=== PATIENT | female | born 1975 | race Caucasian/White ===

== ENCOUNTER → 2018-03-05 | Outpatient (CLI) | payer BC ==
[~2018-03-05] MED LIST: FERUMOXYTOL 510 MG in SODIUM CHLORIDE 0.9% 50 ML IVPB ONE; SODIUM CHLORIDE 0.9% 500 ML 500 ML in EMPTY BAG 1 BAG IV PRN
[2018-03-05 11:37] VITALS: BP 137/88; PULSE 74; RESP 18; TEMP 97.7
== END ==
LOC: PEDOP 10:55
PROVIDERS: ATTEND Physician Assistant
DX: D50.9 Iron deficiency anemia, unspecified (principal)
CPT/HCPCS: 96365; Q0138

== ENCOUNTER → 2018-03-10 | Outpatient (CLI) | payer BC ==
[2018-03-10 08:19] VITALS: BP 140/75; PULSE 82; RESP 16; TEMP 98
== END | disposition home or self-care (01) ==
LOC: PROCWHC3 08:00
PROVIDERS: ATTEND Physician Assistant
DX: D50.9 Iron deficiency anemia, unspecified (principal)
CPT/HCPCS: 96365; Q0138

== ENCOUNTER 2021-03-29 07:12 | Observation (INO) | payer BC ==
[2021-03-29] MEDS ORDERED: SODIUM CHLORIDE 0.9% 500 ML 500 ML IV STA (08:07)
--- NOTE | 2021-03-29 08:25 | ED ---
General Adult HPI - General Chief complaint: Recheck/Abnormal Lab/Rx Stated complaint: High Blood Pressure Time Seen by Provider: 03/29/21 07:47 Source: patient, RN notes reviewed, old records reviewed Mode of arrival: ambulatory Limitations: no limitations - History of Present Illness Initial comments: 45-year-old female presenting for evaluation of elevated blood pressure. Patient has history of hypertension. She was seen for a preoperative clearance for hip replacement and noted to have an elevated blood pressure. She was started on losartan HTC Z yesterday. She is additionally taking metoprolol. She has been taking this for many years. She has a very mild headache. No central chest pain. No abdominal pain nausea vomiting she has been eating and drinking well. No fevers. - Related Data Home Medications Medication Instructions Recorded Confirmed Aspirin EC [Ecotrin Low Dose] 81 mg PO HS 02/19/18 03/10/18 Losartan/Hydrochlorothiazide 1 tab PO DAILY 02/19/18 03/10/18 [Losartan-Hctz 100-25 mg Tab] Metoprolol Succinate [Toprol Xl] 50 mg PO DAILY 02/19/18 03/10/18 Sertraline [Zoloft] 50 mg PO DAILY 02/19/18 03/10/18 Simvastatin [Zocor] 40 mg PO HS 02/19/18 03/10/18 Ferrous Gluconate [Iron] 236 mg PO DAILY 03/10/18 03/10/18 Allergies Allergy/AdvReac Type Severity Reaction Status Date / Time No Known Allergies Allergy Verified 03/29/21 07:45 Review of Systems ROS Statement: Those systems with pertinent positive or pertinent negative responses have been documented in the HPI. ROS Other: All systems not noted in ROS Statement are negative. Past Medical History Past Medical History: Blood Disorder, Coronary Artery Disease (CAD), H yperlipidemia, Hypertension Additional Past Medical History / Comment(s): [place]. ANEMIA D/T HEAVY MENSTRAL CYCLE. History of Any Multi-Drug Resistant Organisms: None Reported Past Surgical History: Section, Tubal Ligation Additional Past Surgical History / Comment(s): Stent in 2011, Past Anesthesia/Blood Transfusion Reactions: No Reported Reaction Past Psychological History: No Psychological Hx Reported Smoking Status: Never smoker Past Alcohol Use History: Occasional Past Drug Use History: None Reported General Exam Limitations: no limitations General appearance: alert, in no apparent distress Head exam: Present: atraumatic, normocephalic Eye exam: Present: normal appearance, PERRL ENT exam: Present: normal exam Neck exam: Present: normal inspection. Absent: tenderness, meningismus Respiratory exam: Present: normal lung sounds bilaterally. Absent: respiratory distress, wheezes Cardiovascular Exam: Present: regular rate, normal rhythm GI/Abdominal exam: Present: soft. Absent: distended, tenderness, guarding Extremities exam: Present: normal inspection, normal capillary refill. Absent: pedal edema Neurological exam: Present: alert, oriented X3, CN II-XII intact. Absent: motor sensory deficit Psychiatric exam: Present: normal affect, normal mood Skin exam: Present: warm, dry, intact. Absent: cyanosis, diaphoretic Course Vital Signs 03/29/21 03/29/21 03/29/21 07:42 08:30 09:59 Temperature 98.9 F Pulse Rate 74 60 71 Respiratory 18 18 18 Rate Blood Pressure 212/124 192/118 190/119 O2 Sat by Pulse 99 98 98 Oximetry EKG Findings - EKG Comments: EKG Findings:: EKG sinus rhythm with frequent PVC and a pattern of bigeminy rate of 77, LA interval 164, QRS duration 82, QTC [address] segment elevation Medical Decision Making - Medical Decision Making 45-year-old female history of hypertension presenting for evaluation of elevated blood pressure. Initial blood pressure is 230/140. Patient has otherwise stable vitals. She has a nonfocal neurologic exam. She did report symptoms of mild headache. Head CT is performed which is negative for intracranial hemorrhage or mass effect. She has a normal CBC, normal CMP, normal kidney function, negative troponin. EKG is without ST segment elevation or definitive signs of ischemia. Patient recently reinitiated on losartan. This will be increased back to her previous level of 100 losartan and 2500, thiazide. Additionally she is given hydralazine in the emergency department. She will continue her metoprolol. I discussed the case with Dr. Lopes who will observe this patient overnight monitoring this significantly elevated blood pressure. He does recommend hydralazine scheduled 50 mg 3 times a day. This order has been placed. - Lab Data Result diagrams: 03/29/21 08:19 03/29/21 08:19 Lab Results 03/29/21 03/29/21 03/29/21 Range/Units 08:19 08:19 08:19 WBC 7.2 (3.8-10.6) k/uL RBC 4.61 (3.80-5.40) m/uL Hgb 13.3 (11.4-16.0) gm/dL Hct 40.3 (34.0-46.0) % MCV 87.4 (80.0-100.0) fL MCH 28.8 (25.0-35.0) pg MCHC 32.9 (31.0-37.0) g/dL RDW 14.9 (11.5-15.5) % Plt Count 435 (150-450) k/uL MPV 6.9 Neutrophils % 74 % Lymphocytes % 15 % Monocytes % 4 % Eosinophils % 6 % Basophils % 0 % Neutrophils # 5.3 (1.3-7.7) k/uL Lymphocytes # 1.1 (1.0-4.8) k/uL Monocytes # 0.3 (0-1.0) k/uL Eosinophils # 0.4 (0-0.7) k/uL Basophils # 0.0 (0-0.2) k/uL PT 9.7 (9.0-12.0) sec INR 0.9 (<1.2) APTT 28.1 (22.0-30.0) sec Sodium 138 (137-145) mmol/L Potassium 3.8 (3.5-5.1) mmol/L Chloride 103 (98-107) mmol/L Carbon Dioxide 23 (22-30) mmol/L Anion Gap 12 mmol/L BUN 13 (7-17) mg/dL Creatinine 0.58 (0.52-1.04) mg/dL Est GFR (CKD-EPI)AfAm >90 (>60 ml/min/1.73 sqM) Est GFR (CKD-EPI)NonAf >90 (>60 ml/min/1.73 sqM) Glucose 112 H (74-99) mg/dL Calcium 9.6 (8.4-10.2) mg/dL Magnesium 1.9 (1.6-2.3) mg/dL Total Bilirubin 1.0 (0.2-1.3) mg/dL AST 30 (14-36) U/L ALT 20 (4-34) U/L Alkaline Phosphatase 97 (38-126) U/L Troponin I (0.000-0.034) ng/mL Total Protein 8.3 H (6.3-8.2) g/dL Albumin 4.8 (3.5-5.0) g/dL 03/29/21 Range/Units 08:19 WBC (3.8-10.6) k/uL RBC (3.80-5.40) m/uL Hgb (11.4-16.0) gm/dL Hct (34.0-46.0) % MCV (80.0-100.0) fL MCH (25.0-35.0) pg MCHC (31.0-37.0) g/dL RDW (11.5-15.5) % Plt Count (150-450) k/uL MPV Neutrophils % % Lymphocytes % % Monocytes % % Eosinophils % % Basophils % % Neutrophils # (1.3-7.7) k/uL Lymphocytes # (1.0-4.8) k/uL Monocytes # (0-1.0) k/uL Eosinophils # (0-0.7) k/uL Basophils # (0-0.2) k/uL PT (9.0-12.0) sec INR (<1.2) APTT (22.0-30.0) sec Sodium (137-145) mmol/L Potassium (3.5-5.1) mmol/L Chloride (98-107) mmol/L Carbon Dioxide (22-30) mmol/L Anion Gap mmol/L BUN (7-17) mg/dL Creatinine (0.52-1.04) mg/dL Est GFR (CKD-EPI)AfAm (>60 ml/min/1.73 sqM) Est GFR (CKD-EPI)NonAf (>60 ml/min/1.73 sqM) Glucose (74-99) mg/dL Calcium (8.4-10.2) mg/dL Magnesium (1.6-2.3) mg/dL Total Bilirubin (0.2-1.3) mg/dL AST (14-36) U/L ALT (4-34) U/L Alkaline Phosphatase (38-126) U/L Troponin I <0.012 (0.000-0.034) ng/mL Total Protein (6.3-8.2) g/dL Albumin (3.5-5.0) g/dL Disposition Clinical Impression: Hypertension Disposition: ADMITTED IP TO THIS HOSP Condition: Stable Is patient prescribed a controlled substance at d/c from ED?: No Referrals: Iza Pimentel MD [Primary Care Provider] - 1-2 days Decision to Admit Reason: Admit from EC Decision Date: 03/29/21 Decision Time: 10:12
[2021-03-29 08:28] LABS: Basophils % (A) 0 %; Eosinophils # (A) 0.4 k/uL (0-0.7); Eosinophils % (A) 6 %; HCT 40.3 % (34.0-46.0); HGB 13.3 gm/dL (11.4-16.0); Lymphocytes # (A) 1.1 k/uL (1.0-4.8); Lymphocytes % (A) 15 %; MCH 28.8 pg (25.0-35.0); MCHC 32.9 g/dL (31.0-37.0); MCV 87.4 fL (80.0-100.0); Mean Platelet Volume 6.9; Monocytes # (A) 0.3 k/uL (0-1.0); Monocytes % (A) 4 %; Neutrophils # (A) 5.3 k/uL (1.3-7.7); Neutrophils % (A) 74 %; Platelet Count 435 k/uL (150-450); RBC 4.61 m/uL (3.80-5.40); RDW 14.9 % (11.5-15.5); WBC 7.2 k/uL (3.8-10.6)
[2021-03-29 08:52] LABS: INR 0.9 (<1.2); Partial Thromboplastin Time 28.1 sec (22.0-30.0); Prothrombin Time 9.7 sec (9.0-12.0)
[2021-03-29 08:56] LABS: Potassium 3.8 mmol/L (3.5-5.1)
[2021-03-29 08:58] LABS: ALT 20 U/L (4-34); AST 30 U/L (14-36); African American GFR (CKD) >90 (>60 ml/min/1.73 sqM); Albumin 4.8 g/dL (3.5-5.0); Alkaline Phosphatase 97 U/L (38-126); Anion Gap 12 mmol/L; Blood Urea Nitrogen 13 mg/dL (7-17); Calcium 9.6 mg/dL (8.4-10.2); Carbon Dioxide 23 mmol/L (22-30); Chloride 103 mmol/L (98-107); Glucose 112 mg/dL (74-99); Magnesium 1.9 mg/dL (1.6-2.3); Non-African American GFR(CKD) >90 (>60 ml/min/1.73 sqM); Sodium 138 mmol/L (137-145); Total Protein 8.3 g/dL (6.3-8.2)
--- NOTE | 2021-03-29 09:02 | CT ---
EXAMINATION TYPE: CT brain wo con DATE OF EXAM: 03/29/2021 COMPARISON: None. HISTORY: Hypertensive headache CT DLP: 1092.4 mGycm. Automated Exposure Control for Dose Reduction was Utilized. TECHNIQUE: CT scan of the head is performed without contrast. FINDINGS: There is no acute intracranial hemorrhage, mass effect, or midline shift identified. The ventricles and sulci are within normal limits in size. Bang-white matter differentiation is maintain ed. The globes are intact and the visualized sinuses are clear. IMPRESSION: Unremarkable study.
[2021-03-29] MEDS ORDERED: hydrALAZINE HCL 20 MG/ML 1 ML VIAL IVP STA (09:27)
[2021-03-29] MEDS ORDERED: LOSARTAN 50 MG TAB PO STA ×2 (09:29→10:33)
[2021-03-29] MEDS ORDERED: hydrALAZINE HCL 50 MG TAB PO STA (09:36)
[2021-03-29] MEDS ORDERED: ACETAMINOPHEN TAB 325 MG TAB PO PRN (10:09)
[2021-03-29] MEDS ORDERED: NALOXONE 0.4 MG/ML 1 ML VIAL IV PRN (10:09)
--- NOTE | 2021-03-29 12:58 | P.HPIM ---
History of Present Illness H&P Date: 03/29/21 HISTORY OF PRESENT ILLNESS This is a 45-year-old female patient of Dr. Pimentel with past medical history of hypertension, myocardial infarction at age 36 [address] Alida Herrera at [facility], generalized osteoarthritis, morbid obesity status post gastric sleeve in January 2020 status post loss of 75 pounds, depression, remote history of tobacco use. Patient gives history that she is scheduled for left hip arthroplasty with Dr. Hannon on 04/09. She saw her export administrator last week and her blood pressure was 130/80. She was scheduled for echocardiogram next Thursday. She was in the office yesterday and saw Diya MARIE and blood pressure was found to be 200/120. Losartan was increased to 100 and hydrochlorothiazide added at 25 which she took this morning. This morning, she found her blood pressure continued to be extremely high and came into the emergency center for evaluation. Blood pressure was 212/124. EKG was a sinus rhythm with frequent PVCs. No ST elevation. CBC was unremarkable. Electrolytes and renal function normal. Blood sugar 112. Liver function tests were normal. Troponin negative. Patient started on her home medications and hydralazine 50 mg 3 times daily added, cardiology consult added as well. Patient denies taking any [id number] medications except for Motrin for her left hip pain.. REVIEW OF SYSTEMS Constitutional: No fever, no chills, no night sweats. No weight change. No weakness, fatigue or lethargy. No daytime sleepiness. EENT: No headache. No blurred vision or double vision, no loss of vision. No loss of Hearing, no ringing in the ears, no dizziness. No nasal drainage or congestion. No epistaxis. No sore throat. Lungs: No shortness of breath, cough, no sputum production. No wheezing. Cardiovascular: No chest pain, no lower extremity edema. No palpitations. No paroxysmal nocturnal dyspnea. No orthopnea. No lightheadedness or dizziness. No syncopal episodes. Abdominal: No abdominal pain. No nausea, vomiting. No diarrhea. No constipation. No bloody or tarry stools. No loss of appetite. Genitourinary: No dysuria, increased frequency, urgency. No urinary retention. Musculoskeletal: No myalgias. No muscle weakness, no gait dysfunction, no frequent falls. No back pain. No neck pain. Bilateral hip pain left greater than right. Integumentary: No wounds, no lesions. No rash or pruritus. No unusual bruising. No change in hair or nails. Neurologic: No aphasia. No facial droop. No change in mentation. No head injury. No headache. No paralysis. No paresthesia. Psychiatric: No depression. Reports anxiety. No mood swings. Endocrine: No abnormal blood sugars. No weight change. No excessive sweating or thirst. No cold intolerance. SOCIAL HISTORY Patient was a smoker for 20 years and quit in 2011. She drinks 4-6 mixed drinks per week. She denies any marijuana or illicit drug use. She is and lives at home with her and 3-1/2-year-old son. FAMILY HISTORY Mother is alive with history of MS and hypertension. Father at age 71 from COPD and heart failure. Patient does not have any sisters. Patient has one brother status post brain aneurysm bleed/CVA and not doing well. She has one son that certain half years old with no major medical problems. PHYSICAL EXAMINATION Gen: This is a 45-year-old female. She is resting in the ER stretcher and appears to be comfortable and in no acute distress. HEENT: Head is atraumatic, normocephalic. Pupils equal, round. Sclerae is anicteric. NECK: Supple. No JVD. No lymphadenopathy. No thyromegaly. LUNGS: Clear to auscultation. No wheezes or rhonchi. No intercostal retractions . HEART: Regular rate and rhythm. No murmur. ABDOMEN: Soft. Bowel sounds are present. No masses. No tenderness. EXTREMITIES: No pedal edema. No calf tenderness. NEUROLOGICAL: Patient is awake, alert and oriented x3. Cranial nerves 2 through 12 are grossly intact. ASSESSMENT AND PLAN 1. Hypertensive emergency. Patient is status post 1 dose of hydralazine 50 mg and losartan 100 mg. Patient will be resumed on her home medication of losartan 100 mg daily and hydrochlorothiazide 25 mg daily, added hydralazine 50 mg 3 times daily. Cardiology consult. Patient is status post 500 ML's of IV fluid. Echocardiogram ordered. 2. History of myocardial infarction at age 36. Cardiology consult. Continue metoprolol succinate 50 mg daily, atorvastatin 40 g at bedtime. 3. Generalized osteoarthritis to bilateral hips with scheduled left hip arthroplasty on 04/[address] Hannon. 4. Morbid obesity status post gastric sleeve and loss of 75 pounds, stable. 5. Recurrent depression. Continue patient on Zoloft 50 mg daily. 6. Gastroesophageal reflux disease and GI prophylaxis. Continue omeprazole 20 mg daily. 7. DVT prophylaxis. Heparin subcu. 8. Hyperlipidemia. Continue atorvastatin 40 mg at bedtime. 9. COVID-19 testing negative. Patient has been hospitalized during a pandemic. Patient will be admitted to the hospital for a minimum of 2 night stay. DISCHARGE PLAN Most likely home on Thursday. Impression and plan of care have been directed as dictated by the signing physician. Emilia Magaña nurse practitioner acting as scribe for signing physician. Past Medical History Past Medical History: Blood Disorder, Coronary Artery Disease (CAD), Hyperlipidemia, Hypertension Additional Past Medical History / Comment(s): [place]. ANEMIA D/T HEAVY MENSTRAL CYCLE. History of Any Multi-Drug Resistant Organisms: None Reported Past Surgical History: Section, Tubal Ligation Additional Past Surgical History / Comment(s): Stent in 2011, Past Anesthesia/Blood Transfusion Reactions: No Reported Reaction Past Psychological History: No Psychological Hx Reported Smoking Status: Never smoker Past Alcohol Use History: Occasional Past Drug Use History: None Reported Medications and Allergies Home Medications Medication Instructions Recorded Confirmed Type Aspirin EC [Ecotrin Low Dose] 81 mg PO HS 02/19/18 03/29/21 History Losartan/Hydrochlorothiazide 1 tab PO DAILY 02/19/18 03/29/21 History [Losartan-Hctz 100-25 mg Tab] Metoprolol Succinate [Toprol Xl] 50 mg PO DAILY PRN 02/19/18 03/29/21 History Sertraline [Zoloft] 50 mg PO DAILY 02/19/18 03/29/21 History Atorvastatin [Lipitor] 40 mg PO HS 03/29/21 03/29/21 History Metoprolol Succinate (ER) [Toprol 50 mg PO DAILY 03/29/21 03/29/21 History Xl] Omeprazole 20 mg PO [id number] 03/29/21 03/29/21 History Allergies Allergy/AdvReac Type Severity Reaction Status Date / Time No Known Allergies Allergy Verified 03/29/21 10:42 Physical Exam Vitals: Vital Signs Temp Pulse Resp BP Pulse Ox 03/29/21 09:59 71 18 190/119 98 03/29/21 08:30 60 18 192/118 98 03/29/21 07:42 98.9 F 74 18 212/124 99 Intake and Output 03/28/21 03/29/21 03/29/21 22:59 06:59 14:59 Other: Weight 113.398 kg Results CBC & Chem 7: 03/29/21 08:19 03/29/21 08:19 Labs: Abnormal Lab Results - Last 24 Hours (Table) 03/29/21 Range/Units 08:19 Glucose 112 H (74-99) mg/dL Total Protein 8.3 H (6.3-8.2) g/dL
[2021-03-29] MEDS: hydroCHLOROthiazide 25 MG TAB PO SCH (14:21)
[2021-03-29] MEDS: hydrALAZINE HCL 50 MG TAB PO SCH ×2 (17:21→20:46)
[2021-03-29] MEDS: METOPROLOL SUCCINATE (ER) 50 MG TAB.ER.24H PO SCH (17:21)
[2021-03-29] MEDS: HEPARIN SODIUM,PORCINE/PF 5,000 UNIT/0.5 ML SYRINGE SQ SCH (20:46)
[2021-03-29] MEDS ORDERED: ATORVASTATIN 40 MG TAB PO SCH (21:00)
[2021-03-29] MEDS ORDERED: ASPIRIN 81 MG PO SCH (21:00)
[2021-03-30 03:41] VITALS: RESP 18
[2021-03-30] MEDS ORDERED: PANTOPRAZOLE 40 MG TABLET PO SCH (07:30)
[2021-03-30] MEDS ORDERED: SERTRALINE 50 MG TAB PO SCH (09:00)
[2021-03-30] MEDS ORDERED: LOSARTAN 50 MG TAB PO SCH ×2 (09:00→13:00)
[2021-03-30] MEDS ORDERED: hydroCHLOROthiazide 25 MG TAB PO SCH ×2 (09:00)
[2021-03-30] MEDS ORDERED: METOPROLOL SUCCINATE (ER) 50 MG TAB.ER.24H PO SCH (09:00)
[2021-03-30] MEDS: METOPROLOL SUCCINATE (ER) 50 MG TAB.ER.24H PO SCH (09:35)
[2021-03-30] MEDS: hydrALAZINE HCL 50 MG TAB PO SCH ×2 (09:35→17:54)
[2021-03-30] MEDS: HEPARIN SODIUM,PORCINE/PF 5,000 UNIT/0.5 ML SYRINGE SQ SCH (09:35)
[2021-03-30] MEDS: hydroCHLOROthiazide 25 MG TAB PO SCH (09:36)
--- NOTE | 2021-03-30 12:01 | CONS ---
CONSULTATION HISTORY OF PRESENT ILLNESS: Mrs. Vivar is a 45-year-old female who is followed by Dr. Pimentel as well as by Dr. Alida Herrera who is her motor block mechanic. She presented because of hypertension. The patient has underwent stenting at the age of 36 in the setting of myocardial infarction and had severe arthritic pain in the left hip and scheduled to undergo total hip arthroplasty by Dr. Hannon. She was seen by her motor block mechanic recently and her blood pressure was borderline elevated and she was scheduled to undergo an echocardiogram this coming week for preoperative evaluation. Apparently she had a stress test last year that showed no evidence of inducible ischemia. Her blood pressure on visit to her primary care physician was elevated and adjustment of her medication was done, but when she checked her blood pressure at home, it remained elevated and she came into the emergency room and subsequently admitted. The patient denies any dyspnea. She feels some headache with high blood pressure. She has some palpitation but no syncope. No dizziness. No PND. No orthopnea. No peripheral edema. Her activity is limited because of her hip, but she has no anginal pain. Her coronary risk factors are remarkable for the history of hypertension, hyperlipidemia. She is nondiabetic, nonsmoker. MEDICATIONS: Include losartan HCT 100-25 mg daily, Toprol-XL 50 mg daily, aspirin once a day, Lipitor 40 mg daily and omeprazole. REVIEW OF SYSTEMS: RESPIRATORY system: She has no documented history of asthma, emphysema or bronchitis. GI system: No recent GI bleeding. No peptic ulcer disease. system: No dysuria or hematuria. NERVOUS SYSTEM: No stroke or seizure. On presentation, her blood pressure was running in the 200 systolic. PHYSICAL EXAMINATION: Her blood pressure at this time is running in the 130s to 160s with a diastolic in the 70s. HEAD: Normocephalic. Eyes sclerae anicteric. NECK: Good upstroke. No bruit. No jugular venous distention. LUNGS: Clear to auscultation. HEART: Regular rate and rhythm S1, S2. No S3, with a systolic murmur. No diastolic murmur. No rub. ABDOMEN: Soft, nontender. Positive bowel sounds. No organomegaly. EXTREMITIES: No edema. Intact distal pulses. LAB DATA: Lab data revealed troponin less than 0.012. BUN and creatinine is 13 and 0.58. Potassium 3.3. EKG revealed a sinus mechanism, normal axis and intervals, occasional PACs. Her brain CT showed no acute changes. IMPRESSION: 1. Hypertension, uncontrolled. The patient has been taking a lot of ibuprofen at home because of pain and that is probably what raised her blood pressure. She is not very compliant with low-salt diet. 2. History of coronary artery disease stable. 3. History of hyperlipidemia. 4. Osteoarthritis, scheduled for surgery. RECOMMENDATIONS: The patient has been started on hydralazine. She will continue on the losartan in addition to her beta kalee, increase her level activity. An echocardiogram with Doppler be obtained. If she is stable I would expect she should be able to be discharged home soon and follow up with her primary motor block mechanic. Thank you for this consult. We will follow with you. ADI / SHAMA: [id number] /
--- NOTE | 2021-03-30 14:07 | ECHOF ---
Referral Reason:htn MEASUREMENTS -------- HEIGHT: 175.3 cm WEIGHT: 113.4 kg BP: RVIDd: 3.1 cm (< 3.3) IVSd: 1.3 cm (0.6 - 1.1) LVIDd: 5.1 cm (3.9 - 5.3) LVPWd: 1.6 cm (0.6 - 1.1) IVSs: 1.6 cm LVIDs: 3.2 cm LVPWs: 1.6 cm LA Diam: 3.9 cm (2.7 - 3.8) LAESV Index (A-L): 21.39 ml/m Ao Diam: 2.9 cm (2.0 - 3.7) AV Cusp: 2.0 cm (1.5 - 2.6) LA Diam: 4.1 cm (2.7 - 3.8) MV EXCURSION: 21.171 mm (> 18.000) MV EF SLOPE: 68 mm/s (70 - 150) EPSS: 0.3 cm MV E Roque: 0.56 m/s MV DecT: 285 ms MV A Roque: 0.80 m/s MV E/A Ratio: 0.71 RAP: 5.00 mmHg RVSP: 16.18 mmHg FINDINGS -------- Sinus rhythm. This was a technically adequate study. The left ventricular size is normal. There is mild concentric left ventricular hypertrophy. Overa ll left ventricular systolic function is normal with, an EF between 55 - 60 %. The diastolic fillin g pattern is normal for the age of the patient 7.58. The right ventricle is normal in size. Normal LA size by volume 22+/-6 ml/m2. The right atrial size is normal. The aortic valve is trileaflet, and appears structurally normal. No aortic stenosis or regurgitation. The mitral valve is normal. Mild mitral regurgitation is present. The tricuspid valve appears structurally normal. Mild tricuspid regurgitation present. Right vent ricular systolic pressure is normal at < 35 mmHg. There is no pulmonic regurgitation present. The aortic root size is normal. There is no pericardial effusion. CONCLUSIONS -------- 1. There is mild concentric left ventricular hypertrophy. 2. Overall left ventricular systolic function is normal with, an EF between 55 - 60 %. 3. Normal LA size by volume 22+/-6 ml/m2. 4. The aortic valve is trileaflet, and appears structurally normal. No aortic stenosis or regurgitati on. 5. Mild mitral regurgitation is present. 6. Mild tricuspid regurgitation present. INSURANCE SPECIALIST: Andree Liriano RDCS
--- NOTE | 2021-03-30 17:39 | P.DS ---
Providers Date of admission: 03/29/21 10:09 Expected date of discharge: 03/30/21 Attending physician: Oscar Lopes Consults: 03/30/21 09:40 Consult Physician Routine Consulting Provider: Kwasi Wetzel Consult Reason/Comments: htn, hx mi, upcoming ortho surgery Do you want consulting provider notified?: Yes Primary care physician: Iza Pimentel [facility] Course: HISTORY OF PRESENT ILLNESS This is a 45-year-old female patient of Dr. Pimentel with past medical history of hypertension, myocardial infarction at age [address] Alida Herrera at [facility], generalized osteoarthritis, morbid obesity status post gastric sleeve in January 2020 status post loss of 75 pounds, depression, remote history of tobacco use. Patient gives history that she is scheduled for left hip arthroplasty with Dr. Hannon on 04/09. She saw her core java engineer last week and her blood pressure was 130/80. She was scheduled for echocardiogram next Thursday. She was in the office yesterday and saw Diya MARIE and blood pressure was found to be 200/120. Losartan was increased to 100 and hydrochlorothiazide added at 25 which she took this morning. This morning, she found her blood pressure continued to be extremely high and came into the emergency center for evaluation. Blood pressure was 212/124. EKG was a sinus rhythm with frequent PVCs. No ST elevation. CBC was unremarkable. Electrolytes and renal function normal. Blood sugar 112. Liver function tests were normal. Troponin negative. Patient started on her home medications and hydralazine 50 mg 3 times daily added, cardiology consult added as well. Patient denies taking any [id number] medications except for Motrin for her left hip pain.. 18. Patient's blood pressure is much better, however intermittently, there is a burst of blood pressure in the 150s, with diastolic of 120, minimal headache, controlled with hydralazine, and Tylenol. Patient is requesting discharge today, with follow-up outpatient, prescription sent to the pharmacy, continue on hydralazine which is new, 50 mg 3 times a day, continue HCTZ losartan 100/25, control pain better, for which she has hip arthritis, awaiting hip replacement, and sleep hygiene. Creatinine is normal on discharge, might need RENIN ANGIOtensin lab as an outpatient, for additional workup for renovascular hypertension evaluation if needed REVIEW OF SYSTEMS Constitutional: No fever, no chills, no night sweats. No weight change. No weakness, fatigue or lethargy. No daytime sleepiness. EENT: No headache. No blurred vision or double vision, no loss of vision. No loss of Hearing, no ringing in the ears, no dizziness. No nasal drainage or congestion. No epistaxis. No sore throat. Lungs: No shortness of breath, cough, no sputum production. No wheezing. Cardiovascular: No chest pain, no lower extremity edema. No palpitations. No paroxysmal nocturnal dyspnea. No orthopnea. No lightheadedness or dizziness. No syncopal episodes. Abdominal: No abdominal pain. No nausea, vomiting. No diarrhea. No constipation. No bloody or tarry stools. No loss of appetite. Genitourinary: No dysuria, increased frequency, urgency. No urinary retention. Musculoskeletal: No myalgias. No muscle weakness, no gait dysfunction, no frequent falls. No back pain. No neck pain. Bilateral hip pain left greater than right. Integumentary: No wounds, no lesions. No rash or pruritus. No unusual bruising. No change in hair or nails. Neurologic: No aphasia. No facial droop. No change in mentation. No head injury. No headache. No paralysis. No paresthesia. Psychiatric: No depression. Reports anxiety. No mood swings. Endocrine: No abnormal blood sugars. No weight change. No excessive sweating or thirst. No cold intolerance. SOCIAL HISTORY Patient was a smoker for 20 years and quit in 2011. She drinks 4-6 mixed drinks per week. She denies any marijuana or illicit drug use. She is and lives at home with her and 3-1/2-year-old son. FAMILY HISTORY Mother is alive with history of MS and hypertension. Father at age 71 from COPD and heart failure. Patient does not have any sisters. Patient has one brother status post brain aneurysm bleed/CVA and not doing well. She has one son that certain half years old with no major medical problems. PHYSICAL EXAMINATION Gen: This is a 45-year-old female. She is resting in the ER stretcher and appears to be comfortable and in no acute distress. HEENT: Head is atraumatic, normocephalic. Pupils equal, round. Sclerae is anicteric. NECK: Supple. No JVD. No lymphadenopathy. No thyromegaly. LUNGS: Clear to auscultation. No wheezes or rhonchi. No intercostal retractions. HEART: Regular rate and rhythm. No murmur. ABDOMEN: Soft. Bowel sounds are present. No masses. No tenderness. EXTREMITIES: No pedal edema. No calf tenderness. NEUROLOGICAL: Patient is awake, alert and oriented x3. Cranial nerves 2 through 12 are grossly intact. Final diagnosis 1. Hypertensive emergency. Patient isV to be discharged on 3 times a day hydralazine 50 mg and losartan HCTZ 100 mg 5. . Echocardiogram ordered. EF 55-60%, mild concentric LVH, mild TR and mild MR, normal right ventricle systolic pressure no wall motion abnormality 2. History of myocardial infarction at age 36. Cardiology consult. Continue metoprolol succinate 50 mg daily, atorvastatin 40 g at bedtime. 3. Generalized osteoarthritis to bilateral hips with scheduled left hip arthroplasty on 04/[address] Hannon. 4. Morbid obesity status post gastric sleeve and loss of 75 pounds, stable. 5. Recurrent depression with anxiety. Continue Zoloft secondary to stressful dysfunction, start on Wellbutrin 150 XL daily, and BuSpar 15 mg twice a day, for anxiety 6. Gastroesophageal reflux disease and GI prophylaxis. Continue omeprazole 20 mg daily. 7. DVT prophylaxis. Heparin subcu. 8. Hyperlipidemia. Continue atorvastatin 40 mg at bedtime. 9. COVID-19 testing negative. Patient has been hospitalized during a pandemic. Patient will be admitted to the hospital for a minimum of 2 night stay. DISCHARGE PLAN Most likely home on Thursday. Discharge Medication List Aspirin EC [Ecotrin Low Dose] 81 mg PO HS 02/19/18 [History] Losartan/Hydrochlorothiazide [Losartan-Hctz 100-25 mg Tab] 1 tab PO DAILY 02/19/18 [History] Metoprolol Succinate [Toprol Xl] 50 mg PO DAILY PRN 02/19/18 [History] Atorvastatin [Lipitor] 40 mg PO HS 03/29/21 [History] Metoprolol Succinate (ER) [Toprol XL] 50 mg PO DAILY 03/29/21 [History] Omeprazole 20 mg PO AC-BRKFST 03/29/21 [History] Acetaminophen Tab [Tylenol] 650 mg PO Q6HR PRN tab 03/30/21 [Rx] buPROPion HCL [Wellbutrin XL] 150 mg PO DAILY #30 tab 03/30/21 [Rx] busPIRone HCL [Buspar] 15 mg PO BID #60 tab 03/30/21 [Rx] hydrALAZINE HCL [Apresoline] 50 mg PO TID #90 tab 03/30/21 [Rx] Patient Condition at Discharge: Stable Plan - Discharge Summary Discharge Rx Participant: No New Discharge Prescriptions: New hydrALAZINE HCL [Apresoline] 50 mg PO TID #90 tab busPIRone HCL [Buspar] 15 mg PO BID #60 tab buPROPion HCL [Wellbutrin XL] 150 mg PO DAILY #30 tab Acetaminophen Tab [Tylenol] 650 mg PO Q6HR PRN tab PRN Reason: Mild Pain Or Fever > 100.5 Continue Aspirin EC [Ecotrin Low Dose] 81 mg PO HS Metoprolol Succinate [Toprol Xl] 50 mg PO DAILY PRN PRN Reason: Hypertension Losartan/Hydrochlorothiazide [Losartan-Hctz 100-25 mg Tab] 1 tab PO DAILY Atorvastatin [Lipitor] 40 mg PO HS Metoprolol Succinate (ER) [Toprol XL] 50 mg PO DAILY Omeprazole 20 mg PO AC-BRKFST Discontinued Sertraline [Zoloft] 50 mg PO DAILY Discharge Medication List Aspirin EC [Ecotrin Low Dose] 81 mg PO HS 02/19/18 [History] Losartan/Hydrochlorothiazide [Losartan-Hctz 100-25 mg Tab] 1 tab PO DAILY 02/19/18 [History] Metoprolol Succinate [Toprol Xl] 50 mg PO DAILY PRN 02/19/18 [History] Atorvastatin [Lipitor] 40 mg PO HS 03/29/21 [History] Metoprolol Succinate (ER) [Toprol XL] 50 mg PO DAILY 03/29/21 [History] Omeprazole 20 mg PO AC-BRKFST 03/29/21 [History] Acetaminophen Tab [Tylenol] 650 mg PO Q6HR PRN tab 03/30/21 [Rx] buPROPion HCL [Wellbutrin XL] 150 mg PO DAILY #30 tab 03/30/21 [Rx] busPIRone HCL [Buspar] 15 mg PO BID #60 tab 03/30/21 [Rx] hydrALAZINE HCL [Apresoline] 50 mg PO TID #90 tab 03/30/21 [Rx] Follow up Appointment(s)/Referral(s): Iza Pimentel MD [Primary Care Provider] - 1-2 days Richy Herrera DO [STAFF PHYSICIAN] - 1 Week Discharge Disposition: HOME SELF-CARE
[2021-03-30 17:59] VITALS: BP 149/102; PULSE 65; TEMP 98.3
[2021-03-31] MEDS ORDERED: LOSARTAN 50 MG TAB PO SCH (09:00)
== END 2021-03-30 19:26 | disposition home or self-care (01) ==
LOC: EC 07:12 → 3SCARD 10:09
PROVIDERS: ADMIT Internal Medicine Geriatric Medicine; ATTEND Internal Medicine Geriatric Medicine
DX: I16.1 Hypertensive emergency (principal); I25.2 Old myocardial infarction; M16.0 Bilateral primary osteoarthritis of hip; E66.01 Morbid (severe) obesity due to excess calories; Z68.35 Body mass index [BMI] 35.0-35.9, adult; F41.8 Other specified anxiety disorders; F33.9 Major depressive disorder, recurrent, unspecified; I49.3 Ventricular premature depolarization; E78.5 Hyperlipidemia, unspecified; K21.9 Gastro-esophageal reflux disease without esophagitis; I25.10 Atherosclerotic heart disease of native coronary artery without angina pectoris; D64.9 Anemia, unspecified; I08.1 Rheumatic disorders of both mitral and tricuspid valves; Z20.822 Contact with and (suspected) exposure to COVID-19; Z98.84 Bariatric surgery status; Z87.891 Personal history of nicotine dependence; I10 Essential (primary) hypertension; Z79.82 Long term (current) use of aspirin; Z79.899 Other long term (current) drug therapy; Z82.49 Family history of ischemic heart disease and other diseases of the circulatory system; Z82.3 Family history of stroke; Z82.69 Family history of other diseases of the musculoskeletal system and connective tissue; Z82.5 Family history of asthma and other chronic lower respiratory diseases
CPT/HCPCS: 96372 ×2; 96360; 99285; 36415; 93005; 93306; 80053; 83735; 84484; 85025; 85610; 85730; 87635; 70450; G0378 ×2; J1644 ×2

== ENCOUNTER → 2021-04-05 | Outpatient (CLI) | payer BC ==
[2021-04-05 11:11] LABS: HCT 39.2 % (34.0-46.0); MCH 29.2 pg (25.0-35.0); MCHC 33.1 g/dL (31.0-37.0); MCV 88.3 fL (80.0-100.0); Mean Platelet Volume 7.4; Platelet Count 573 k/uL (150-450); RBC 4.44 m/uL (3.80-5.40); RDW 14.1 % (11.5-15.5); WBC 8.2 k/uL (3.8-10.6)
[2021-04-05 11:13] LABS: INR 0.9 (<1.2); Partial Thromboplastin Time 28.9 sec (22.0-30.0)
[2021-04-05 11:37] LABS: Appearance,Urine Clear (Clear); Bacteria,Urine Occasional /hpf; Bilirubin,Urine Negative (Negative); Blood,Urine Trace (Negative); Color,Urine Yellow; Glucose,Urine (UA) Negative (Negative); Ketones,Urine Negative (Negative); Leukocyte Esterase,Urine Negative (Negative); Mucus,Urine Rare /hpf; Nitrite,Urine Negative (Negative); PH, Urine 5.5 (5.0-8.0); Protein,Urine Negative (Negative); RBC,Urine 3 /hpf (0-5); Specific Gravity,Urine 1.017 (1.001-1.035); Squamous Epithelial Cell,Urine 1 /hpf (0-4); Urobilinogen,Urine <2.0 mg/dL (<2.0); WBC,Urine 1 /hpf (0-5)
[2021-04-05 11:39] LABS: ALT 24 U/L (4-34); AST 27 U/L (14-36); African American GFR (CKD) >90 (>60 ml/min/1.73 sqM); Albumin 4.5 g/dL (3.5-5.0); Alkaline Phosphatase 98 U/L (38-126); Anion Gap 11 mmol/L; Blood Urea Nitrogen 13 mg/dL (7-17); Calcium 9.7 mg/dL (8.4-10.2); Carbon Dioxide 24 mmol/L (22-30); Chloride 101 mmol/L (98-107); Glucose 116 mg/dL (74-99); Non-African American GFR(CKD) >90 (>60 ml/min/1.73 sqM); Potassium 3.9 mmol/L (3.5-5.1); Sodium 136 mmol/L (137-145); Total Bilirubin 1.1 mg/dL (0.2-1.3); Total Protein 7.9 g/dL (6.3-8.2)
== END | disposition home or self-care (01) ==
LOC: LABPAT 10:32
PROVIDERS: ATTEND Orthopaedic Surgery
DX: Z01.812 Encounter for preprocedural laboratory examination (principal); M16.12 Unilateral primary osteoarthritis, left hip
CPT/HCPCS: 80053; 81001; 85027; 85610; 85730; 87070

== ENCOUNTER → 2022-03-12 | Outpatient (CLI) | payer BC ==
--- NOTE | 2022-03-12 15:41 | BD ---
EXAMINATION TYPE: Axial Bone Density DATE OF EXAM: 03/12/2022 COMPARISON: BASELINE CLINICAL HISTORY: 46 years year old Female. ICD-10 CODE: Z78.0 ASYMPTOMATIC MENOPAUSAL STATE Height: 69" Weight: 247 FRAX RISK QUESTIONS: Alcohol (3 or more units per day): NO Family History (Parent hip fracture): NO Glucocorticoids (More than 3mos): NO (Ex: prednisone, prednisolone, methylprednisolone, dexamethasone, and hydrocortisone). History of Fracture in Adulthood: NO Secondary Osteoporosis: 1. Type 1 Diabetes: NO 2. Hyperthyroidism: NO 3. Menopause before 45: NO 4. Malnutrition: NO 5. Chronic liver disease: NO Rheumatoid Arthritis: NO Current Tobacco Use: NO RISK FACTORS HISTORY OF: Surgery to Spine/Hip(right/left)/Wrist (right/left): LEFT HIP REPLACEMENT, 03/2021 When: 03/2021 Family History of Osteoporosis: NO Active: YES Diet low in dairy products/other sources of calcium: NO Postmenopausal woman: NO If Premenopausal, do you have irregular periods: NO Lost more than 2 inches in height since high school: YES Frequent falls: NO Poor Health: FAIR Hyperparathyroidism: NO Adrenal Insufficiency: NO MEDICATIONS: Additional Medications: LOZARTIN (bp), HZTZ (BP), METOPROLOL (BP), PRILOSEC, LIPITOR (CHOLES), ANTI-A NXIETY MED, ASPIRIN EXAM MEASUREMENTS: Bone mineral densitometry was performed using the [employer] System. Bone mineral density as measured about the Lumbar spine is: ----- L1-L4(G/cm2): 1.645 T Score Values are as follows: ----- L1: 3.4 ----- L2: 2.2 ----- L3: 4.4 ----- L4: 4.3 ----- L1-L4: 3.7 Bone mineral density about the R hip (g/cm2): 1.139 T Score values are as follows: -----R Neck: 1.1 -----R Total: 1.0 FRAX%s: The graph provided illustrates a 1.6% chance for a major osteoporotic fx and a 0.0% chance fo r the hips probability for fx in 10 years time. IMPRESSION: Normal (Values between +1 and -1 indicate normal bone mass). Consider repeating this study in 5 year s or sooner if there is some new clinical indication. NOTE: T-SCORE=SD OF THE YOUNG ADULT MEAN.
--- NOTE | 2022-03-13 18:41 | MM ---
Reason for Exam: Screening (asymptomatic). Last mammogram was performed 1 year(s) and 8 month(s) ago. Patient History: Menarche at age 14. First Full-Term at age 41. Late child-bearing (after 30). Last menstrual period: 02/25/2022 Risk Values: Fatuma 5 year model risk: 1.1%. NCI Lifetime model risk: 13.0%. Prior Study Comparison: 02/03/2019 Bilateral MG 3D screening mammo w/cad, Unknown. 06/27/2020 Bilateral MG 3D screening mammo w/cad, [place]. Tissue Density: The breast tissue is heterogeneously dense. This may lower the sensitivity of mammography. Findings: Analyzed By CAD. Small area of grouped microcalcifications far posterior central left MLO view projecting over the pectoralis muscle. Possible far posterior oil cyst previously not included in the [id number]. Further magnification views recommended to better assess morphology. Otherwise, no significant change. Overall Assessment: Incomplete: need additional imaging evaluation, BI-RAD 0 Management: Special View Mammogram of the left breast. Including mag MLO, 3-D lateral (to include far posterior tissues), mag lateral (if calcifications identified on the lateral view), 3-D XCCL, and 3-D XCCM views. [facility] will attempt to contact patient to return for supplemental views and ultrasound if indicated. Electronically signed and approved by: Samanta Deng M.D. Radiologist
== END | disposition home or self-care (01) ==
LOC: RADMAMWWP 14:26
PROVIDERS: ATTEND Family Medicine
DX: Z12.31 Encounter for screening mammogram for malignant neoplasm of breast (principal); M89.9 Disorder of bone, unspecified; Z78.0 Asymptomatic menopausal state
CPT/HCPCS: 77063; 77067; 77080

== ENCOUNTER → 2022-03-26 | Outpatient (CLI) | payer BC ==
--- NOTE | 2022-03-26 08:13 | MM ---
Reason for Exam: Additional evaluation requested from prior study. Last screening mammogram was performed less than 1 month ago. Patient History: Menarche at age 14. First Full-Term at age 41. Late child-bearing (after 30). Last menstrual period: 03/21/2022 Risk Values: Fatuma 5 year model risk: 1.1%. NCI Lifetime model risk: 13.0%. Prior Study Comparison: 02/03/2019 Bilateral MG 3D screening mammo w/cad, Unknown. 06/27/2020 Bilateral MG 3D screening mammo w/cad, [place]. 03/12/2022 Bilateral MG 3D screening mammo w/cad, [facility]. Tissue Density: Left: The breast tissue is heterogeneously dense. This may lower the sensitivity of mammography. Findings: Analyzed By CAD. Diagnostic imaging of the left breast has stable appearance to the parenchymal tissue. On the mediolateral oblique compression view of the calcification near the pectoralis muscle posteriorly is visualized and appears benign. This was not able to be redemonstrated on additional images. Repeat left mediolateral oblique compression view in 6 months to confirm stability is recommended. Overall Assessment: Probably benign, BI-RAD 3 Management: Diagnostic Mammogram of the left breast in 6 months. A clinical breast exam by your physician is recommended on an annual basis and results should be correlated with mammographic findings. This exam should not preclude additional follow-up of suspicious palpable abnormalities. Results were given to the patient verbally at the time of exam. Electronically signed and approved by: Oren Jackson D.O. Radiologis
== END | disposition home or self-care (01) ==
LOC: RADMAMWWP 07:09
PROVIDERS: ATTEND Family Medicine
DX: R92.8 Other abnormal and inconclusive findings on diagnostic imaging of breast (principal)
CPT/HCPCS: 77061; 77065

== ENCOUNTER → 2022-10-02 | Outpatient (CLI) | payer BC ==
--- NOTE | 2022-10-02 07:51 | MM ---
Reason for Exam: Clinical finding. Last screening mammogram was performed 7 month(s) ago. Patient History: Menarche at age 14. First Full-Term at age 41. Late child-bearing (after 30). Premenopausal. Last menstrual period: 09/26/2022 Risk Values: Fatuma 5 year model risk: 1.2%. NCI Lifetime model risk: 12.8%. Prior Study Comparison: 06/27/2020 Bilateral MG 3D screening mammo w/cad, [place]. 03/12/2022 Bilateral MG 3D screening mammo w/cad, [facility]. 03/26/2022 Left MG 3D work up w/cad , [facility]. Tissue Density: Left: The breast tissue is heterogeneously dense. This may lower the sensitivity of mammography. Findings: Analyzed By CAD. The previous tiny focus of grouped calcifications are peripheral medial aspect of the breasts could not be demonstrated in the field of view of the current XCCM or MLO projection. We feel that it should be visible on the XCCM view given the amount of tissue that has been pulled in. Possible resorbed oil cyst or dermal calcification. An additional precautionary 6 month follow-up is recommended. Central annular asymmetric density on the CC view becomes less defined on spot 3-D, similar appearance to the 2020 exam. Overall Assessment: Probably benign, BI-RAD 3 Management: Diagnostic Mammogram of both breasts in 6 months. Total one-year follow-up far posterior medial left breast calcification. Obtain a left XCCM at the time of patient's follow-up. Annual exam of the right breast. Results were given to the patient verbally at the time of exam. Patient should continue monthly self-breast exams. A clinical breast exam by your physician is recommended on an annual basis. This exam should not preclude additional follow-up of suspicious palpable abnormalities. Note on Fatuma scores and lifetime risk: 1. A Fatuma score greater than 3% is considered moderate risk. If this is the case, consider specialist referral to assess eligibility for a risk reducing agent. 2. If overall lifetime risk for the development of breast cancer is 20% or higher, the patient may qualify for future screening with alternating mammogram and breast MRI. Electronically signed and approved by: Samanta Deng M.D. Radiologist
== END | disposition home or self-care (01) ==
LOC: RADMAMWWP 07:02
PROVIDERS: ATTEND Family Medicine
DX: R92.8 Other abnormal and inconclusive findings on diagnostic imaging of breast (principal)
CPT/HCPCS: 77061; 77065

== ENCOUNTER → 2022-12-04 | Outpatient (CLI) | payer BC ==
--- NOTE | 2022-12-04 09:41 | US ---
EXAMINATION TYPE: US abdomen complete DATE OF EXAM: 12/04/2022 COMPARISON: NONE CLINICAL INDICATION: Female, 47 years old with history of R10.10 UPPER ABDOMINAL PAIN, UNSPECIFIED; I ntermittent abdominal pain, history of gastric sleeve TECHNIQUE: Multiple sonographic images of the abdomen are obtained. 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 Common bi le duct is unremarkable. The visualized portions of the pancreas are homogenous. The spleen is unre markable. Kidneys are symmetric and free of hydronephrosis. No renal lesions are seen. IMPRESSION: 1. There is evidence of hepatic steatosis. 2. Cholelithiasis.
== END | disposition home or self-care (01) ==
LOC: RADUSWWP 08:19
PROVIDERS: ATTEND Family Medicine
DX: K80.20 Calculus of gallbladder without cholecystitis without obstruction (principal); K76.0 Fatty (change of) liver, not elsewhere classified; Z98.84 Bariatric surgery status
CPT/HCPCS: 76700

== ENCOUNTER → 2023-05-06 | Outpatient (CLI) | payer BC ==
[2023-05-06 13:50] LABS: Appearance,Urine Clear (Clear); Bilirubin,Urine Negative (Negative); Blood,Urine Negative (Negative); Color,Urine Colorless; Glucose,Urine (UA) Negative (Negative); Ketones,Urine Negative (Negative); Leukocyte Esterase,Urine Negative (Negative); Nitrite,Urine Negative (Negative); PH, Urine 6.5 (5.0-8.0); Protein,Urine Negative (Negative); Specific Gravity,Urine 1.012 (1.001-1.035); Urobilinogen,Urine <2.0 mg/dL (<2.0)
[2023-05-06 13:59] LABS: INR 0.9 (<1.2); Partial Thromboplastin Time 27.6 sec (22.0-30.0); Prothrombin Time 9.7 sec (10.0-12.5)
[2023-05-06 18:03] LABS: Basophils # (A) 0.05 X 10*3/uL (0.00-0.10); Basophils % (A) 0.6 %; Eosinophils # (A) 0.34 X 10*3/uL (0.04-0.35); Eosinophils % (A) 4.2 %; HCT 32.2 % (37.2-46.3); HGB 10.5 g/dL (12.0-15.0); Lymphocytes # (A) 1.52 X 10*3/uL (0.90-5.00); Lymphocytes % (A) 18.9 %; MCHC 32.6 g/dL (32.0-37.0); MCV 82.8 FL (80.0-97.0); Mean Platelet Volume 9.5 FL (9.5-12.2); Monocytes # (A) 0.56 X 10*3/uL (0.20-1.00); NRBC Per 100 WBC 0 X 10*3/uL (0.00-0.01); Neutrophils # (A) 5.54 X 10*3/uL (1.80-7.70); Neutrophils % (A) 68.8 %; Platelet Count 468 X 10*3/uL (140-440); RBC 3.89 X 10*6/uL (4.10-5.20); RDW 16.2 % (11.5-14.5); WBC 8.05 X 10*3/uL (4.50-10.00)
[2023-05-06 18:35] LABS: % Iron Saturation 7.08 (12.00-45.00); ALT 15 U/L (8-44); AST 19 U/L (13-35); Albumin 4.2 g/dL (3.8-4.9); Albumin/Globulin Ratio 1.45 Ratio (1.60-3.17); Alkaline Phosphatase 75 U/L (41-126); BUN/Creat Ratio 18.17 Ratio (12.00-20.00); Blood Urea Nitrogen 10.9 mg/dL (9.0-27.0); Calcium 9.4 mg/dL (8.7-10.3); Carbon Dioxide 24.6 mmol/L (21.6-31.8); Chloride 100 mmol/L (96-109); Ferritin 19.2 ng/mL (10.0-291.0); Globulin 2.9 g/dL (1.6-3.3); Glucose 92 mg/dL (70-110); Iron 31 UG/DL (50-170); Potassium 3.7 mmol/L (3.5-5.5); Sodium 139 mmol/L (135-145); T4, Free (Free Thyroxine) 1.13 ng/dL (0.80-1.80); Total Bilirubin 0.3 mg/dL (0.3-1.2); Total Iron Binding Capacity 438 UG/DL (228-460); Total Protein 7.1 g/dL (6.2-8.2)
[2023-05-06 18:42] LABS: Testosterone <10.00 ng/dL (9.01-47.94)
[2023-05-06 19:08] LABS: Follicle Stimulating Hormone 5.8 mIU/mL; Luteinizing Hormone 7.4 mIU/mL
== END | disposition home or self-care (01) ==
LOC: LABPAT 12:42
PROVIDERS: ATTEND Orthopaedic Surgery
DX: Z01.812 Encounter for preprocedural laboratory examination (principal); Z22.322 Carrier or suspected carrier of Methicillin resistant Staphylococcus aureus; M16.11 Unilateral primary osteoarthritis, right hip; Z98.84 Bariatric surgery status; E78.2 Mixed hyperlipidemia; N92.6 Irregular menstruation, unspecified; E56.8 Deficiency of other vitamins; E55.9 Vitamin D deficiency, unspecified; N39.0 Urinary tract infection, site not specified; E53.8 Deficiency of other specified B group vitamins; R73.03 Prediabetes
CPT/HCPCS: 80053; 81003; 82306; 82607; 82626; 82728; 83001; 83002; 83036; 83540; 83550; 84403; 84439; 84443; 84590; 84630; 85025; 85610; 85730; 86850; 86900; 86901; 87070

== ENCOUNTER → 2023-05-06 | Outpatient (CLI) | payer BC ==
--- NOTE | 2023-05-06 14:36 | XR ---
EXAMINATION TYPE: XR chest 2V DATE OF EXAM: 05/06/2023 2:03 PM CLINICAL INDICATION:Female, 47 years old with history of I25.10 ATHSCL HEART DISEASE OF [place] L[place] LISA RY ARTERY W/O; [facility] COMPARISON: None TECHNIQUE: XR chest 2V Frontal and lateral views of the chest. FINDINGS: Lungs/Pleura: There is no evidence of pleural effusion, focal consolidation, or pneumothorax. Pulmonary vascularity: Unremarkable. Heart/mediastinum: Cardiomediastinal silhouette is unremarkable. Musculoskeletal: No acute osseous pathology. Other findings: None IMPRESSION: No acute cardiopulmonary disease/process.
== END | disposition home or self-care (01) ==
LOC: RADXRMAIN 13:32
PROVIDERS: ATTEND Family Medicine
DX: I25.10 Atherosclerotic heart disease of native coronary artery without angina pectoris (principal)
CPT/HCPCS: 71046

== ENCOUNTER 2023-05-12 07:12 | Day surgery (SDC) | payer BC ==
[~2023-05-12 07:12] MED LIST changes: +ACETAMINOPHEN TAB 500 MG TAB PO PRN; +DEXAMETHASONE SOD PHOSPHATE 4 MG/ML 1 ML VIAL IV ONE; -FERUMOXYTOL 510 MG in SODIUM CHLORIDE 0.9% 50 ML IVPB ONE; +GABAPENTIN 300 MG CAP PO PRN; +HYDROmorphone 0.5 MG/0.5 ML SYRINGE IVP PRN; +LIDOCAINE 1% (10MG/ML) FOR IV START INTRADERMA PRN; +MELOXICAM 7.5 MG TAB PO PRN; +MIDAZOLAM 2 MG/2 ML VIAL IV PRN; +ONDANSETRON 4 MG/2 ML VIAL IVP ONE; -SODIUM CHLORIDE 0.9% 500 ML 500 ML in EMPTY BAG 1 BAG IV PRN; +TRANEXAMIC 1,000 MG/100ML-NACL 1,000 MG in SALINE 1 100ML.BAG IVPB PRN
[2023-05-12] MEDS: LACTATED RINGERS 1,000 ML IV SCH (07:45)
[2023-05-12] MEDS ORDERED: MIDAZOLAM 2 MG/2 ML VIAL IVP ONE ×2 (08:32)
[2023-05-12] MEDS ORDERED: NALOXONE 0.4 MG/ML 1 ML VIAL IV PRN (08:51)
[2023-05-12] MEDS ORDERED: HYDROmorphone 0.5 MG/0.5 ML SYRINGE IVP PRN ×2 (08:51)
[2023-05-12] MEDS ORDERED: HYDROmorphone 1 MG/ML 1 ML SYRINGE IVP PRN (08:51)
[2023-05-12] MEDS ORDERED: ONDANSETRON 4 MG/2 ML VIAL IVP PRN (08:51)
[2023-05-12] MEDS ORDERED: MAGNESIUM HYDROXIDE 2,400 MG/30 ML CUP PO PRN (08:51)
[2023-05-12] MEDS ORDERED: HYDROcodone/APAP 7.5-325MG 1 EACH TAB PO PRN (08:53)
[2023-05-12] MEDS ORDERED: ROPIVACAINE 5 MG/ML 30 ML VIAL ONE (09:05)
[2023-05-12] MEDS ORDERED: MIDAZOLAM 2 MG/2 ML VIAL ONE (09:05)
[2023-05-12] MEDS ORDERED: DEXAMETHASONE SOD PHOSPHATE 4 MG/ML 1 ML VIAL ONE (09:05)
[2023-05-12] MEDS ORDERED: TRANEXAMIC 1,000 MG/100ML-NACL PREMIX BAG ONE (09:05)
[2023-05-12] MEDS ORDERED: KETAMINE HCL IN 0.9 % NACL 50 MG/5 ML SYRINGE ONE (09:05)
[2023-05-12] MEDS ORDERED: PROPOFOL 10 MG/ML 20 ML VIAL IV ONE (09:05)
[2023-05-12] MEDS ORDERED: fentaNYL (PF) 50 MCG/ML 2 ML AMP ONE (09:05)
[2023-05-12] MEDS ORDERED: ceFAZolin 1,000 MG in SODIUM CHLORIDE 0.9% 1,000 ML IRRIGATION ONE (09:33)
[2023-05-12] MEDS ORDERED: ROPIVACAINE 5 MG/ML 30 ML VIAL MISCELLANE ONE ×2 (09:34→10:21)
[2023-05-12] MEDS ORDERED: LACTATED RINGERS 1,000 ML IV ONE (10:30)
--- NOTE | 2023-05-12 10:32 | P.OP ---
Date of Procedure: 05/12/23 Preoperative Diagnosis: Severe osteoarthritis right hip Postoperative Diagnosis: Severe osteoarthritis right hip Procedure(s) Performed: Right total hip arthroplasty with a direct anterior approach Implants: [employer] Polarstem standard size 2 [employer] R3, 3 hole hemispherical acetabular shell, 52 mm [employer]hew Reflection 6.5 mm cancellus screw, 20 mm 2 [employer] R3, XLPE 20 acetabular liner [employer] Nephew Oxinium femoral head 36 mm, +4 All components were press-fit. The articulation is Oxinium on polyethylene. Anesthesia: spinal Surgeon: Samy Hannon Educational Resource Coordinator #1: Angela Nuñez Estimated Blood Loss (ml): 350 Pathology: none sent Condition: stable Disposition: PACU Indications for Procedure: After failure of conservative treatment we discussed the surgical and nonsurgical treatment options at length. Patient wishes to proceed with a total hip arthroplasty with a direct anterior approach. Complications specific to this procedure were discussed at length, including but not limited to infection, leg length discrepancy, dislocation, nerve injury, and fracture. Covid-19 was also discussed at length with the patient, and they are aware of the current policies and procedures. The patient was given the option of delaying surgery, but they elect to proceed knowing these risks. Patient is aware of all these complications and informed consent was obtained Operative Findings: The operative findings are consistent with severe osteoarthritis of the right hip Description of Procedure: The patient was seen and evaluated in the preoperative area and the consent was reviewed. The operative site was marked with a skin marker. The patient verified the procedure and operative site. A JASON block was placed by anesthe shade in the preoperative area. The patient was then brought to the operating room and given preoperative antibiotics intravenously. 1 g of Tranexamic acid was also given intravenously. A spinal anesthetic was administered by the anesthesia department. The patient was then placed on the [place] table with the bony prominences well-padded. The hip area was then prepped with a ChloraPrep solution and draped in the usual sterile fashion. A universal timeout was then performed, which confirmed the patient's name, surgical site, ALLERGIES, and procedure being performed on the consent. Next the incision site was located at 1 cm distal and 4 cm lateral to the anterior superior iliac spine. The skin and subcutaneous tissues were sharply incised. Incision was carefully dissected down to the fascia overlying the tensor fascia hien muscle. This fascia was then incised in line with the muscle fibers. Care was taken to stay laterally in order to avoid injuring the lateral femoral cutaneous nerve. Next, using blunt finger dissection, the tensor fascia hien muscle was dissected off its investing fascia. The muscle was then carefully retracted laterally with a cobra retractor over the lateral neck of the femur. Next, the circumflex vessels were identified and cauterized using the Aquamantis device. The anterior hip capsule was then exposed. The capsule was then opened and an inverted T fashion. The retractors were then placed intracapsularly. The retractors were maintained intracapsular throughout the procedure. The proximal femur was then visualized. Fluoroscopic x-rays were then taken in order to evaluate the preoperative leg lengths. A small amount of traction was placed on the leg. The femoral neck was then osteotomized at the appropriate level above the lesser trochanter. A small wedge of bone was then removed from the remaining femoral head. Next, using a corkscrew the femoral head was removed from the acetabulum. On gross visual inspection, the femoral head had complete loss of articular cartilage and multiple periarticular osteophytes. The femoral head was then measured. Attention was then turned to the acetabulum. The acetabulum was exposed and any remaining labrum was excised. Sequential reaming of the acetabulum was performed using fluoroscopic guidance until there was a good bed of bleeding cancellus bone. When the appropriate size was r eached, a trial was then placed. The position and fit of the trial was checked with fluoroscopy. The trial was then removed. Then, using fluoroscopic guidance, the final implant was impacted at 20 of anteversion and 40 of abduction, and fully seated in the acetabulum. 2 screws were then placed in the acetabulum. Again fluoroscopy was used to check position of the screws. Next, the liner was then impacted, with a 20 elevated liner located in the anterior superior quadrant. Component locking was confirmed. Attention was then directed to the femur. With the aid of the [place] table, the femur was externally rotated to approximately 130, extended, and adducted under the opposite leg. A side hook was then placed under the proximal femur, and the side hook elevator was used to elevate the proximal femur while releasing the capsule. Retractors were then placed. A capsular release was performed, as well as a release of the conjoined tendon, which afforded excellent visualization of the proximal femur. Next, a box osteotome was used to lateralize the proximal femur. A scrap handler was then used to locate the femoral canal. Sequential broaching was then performed with appropriate size which afforded excellent fixation in the proximal femur. A trial was then placed with appropriate head and neck, and the hip was gently reduced with the aid of the [place] table. Fluoroscopy was then used to check position of the components, as well as to evaluate the leg lengths and offset. The leg lengths and offset were measured as closely as possible to ensure stability of the hip. The hip was then gently dislocated and the trials were then removed. Final implants were then impacted and the hip was again reduced. Final fluoroscopic x-rays confirmed that the components were in anatomic position. The leg lengths and offset were measured and were found to coincide with the trial measurements. The hip was also taken through range of motion, and found to be stable. The hip was then copiously irrigated with antibiotic solution with pulsatile lavage. The hip was then irrigated with Irrisept solution. The soft tissues were then injected with a ropivacaine solution. A second dose of 1 g of Tranexamic acid was also given intravenously. The fascia was then closed with 2-0 strata fix suture. The subcutaneous tissue was closed with 3-0 Vicryl. The subcuticular tissue was closed with 3-0 strata fix suture. The skin was then closed with Exofin skin glue. After the glue and dried, and Optifoam silver impregnated dressing was applied. The patient was then transferred to the recovery room in stable condition. The fast food sales assistant SHANON Platt was required due to the complexity of surgery, and the need for skilled surgical instrument technician for positioning, draping, exposure, retraction, and closure of the wound.
--- NOTE | 2023-05-12 10:47 | FL ---
EXAMINATION TYPE: FL guidance operating room, XR Hip Limited RT DATE OF EXAM: 05/12/2023 Comparison: None Clinical History: 47-year-old female Rt Hip-Ant Findings: Rt Hip-Ant 59sec fluoro time 4.[address] Hannon 3 images submitted Impression: Intraoperative fluoroscopy as above.
--- NOTE | 2023-05-12 11:32 | XR ---
EXAMINATION TYPE: XR Hip Limited RT DATE OF EXAM: 05/12/2023 Comparison: None Clinical History: 47-year-old female Status post hip surgery, assess surgical alignment Findings: Right hip total arthroplasty. Both acetabular cup and femoral stem components of the prosthesis are w ell seated without periprosthetic fracture. Alignment grossly anatomic. Foci of soft tissue air relat ed to recent operation. Impression: Uncomplicated postoperative appearance right total hip arthroplasty.
--- NOTE | 2023-05-12 11:37 | P.ANPRN ---
Procedure Note - Anesthesia - Nerve Block Performed Right Charlie Single Time Out Performed: Yes Date of Procedure: 05/12/23 Procedure Start Time: 08:31 Procedure Stop Time: 08:39 Location of Patient: PreOp Indication: Acute Post-Operative Pain, Requested by Surgeon Sedation Type: Sedate with meaningful contact maintained Preparation: Sterile Prep Position: Supine Needle Types: Pajunk Needle Gauge: 21 Ultrasound used to visualize needle placement: Yes Ultrasound used to observe medication spread: Yes Blood Aspirated: No Pain Paresthesia on Injection Noted: No Resistance on Injection: Normal Image Stored and Saved: Yes Events: Uneventful and Well Tolerated (Ropivacaine 0.5% 20 cc plus dexamethasone 4 mg.)
[2023-05-12] MEDS: SODIUM CHLORIDE 0.9% 1,000 ML IV SCH ×2 (14:25→20:13)
--- NOTE | 2023-05-12 14:27 | P.CONS ---
History of Present Illness - History of Present Illness This is a pleasant 47 years old female with past medical history of hypertens ion, hyperlipidemia, coronary artery disease status post stent placement and osteoarthritis, anxiety and depression. She was admitted for her severe osteoarthritis and she underwent right total hip arthroplasty. Today is postop day #0 She is lying in bed comfortable denies any pain. No chest pain or dyspnea. No change in urine or bowel habits. No fever. Patient states she quit smoking many years ago, no alcohol or illicit drugs. Hemodynamically she is stable and she is afebrile. There is no current labs but labs one week earlier were reviewed showing unremarkable CBC except for mild anemia with 10.5 hemoglobin. Platelet count 468 and WBC 8.0. INR 0.9 no Sodium is 139, potassium 3.7, reacting 0.6. Hemoglobin A1c is 6.2% Postop BMP and liver enzymes were unremarkable. Review of Systems Review of systems CONSTITUTIONAL: No fever, no malaise, no fatigue. HEENT: No recent visual problems or hearing problems. Denied any sore throat. CARDIOVASCULAR: No orthopnea, PND, no palpitations, no syncope. PULMONARY: No shortness of breath, no cough, no hemoptysis. GASTROINTESTINAL: No diarrhea, no nausea, no vomiting, no abdominal pain. N ormoactive bowel sounds. NEUROLOGICAL: No headaches, no weakness, no numbness. HEMATOLOGICAL: Denies any bleeding or petechiae. GENITOURINARY: Denies any burning micturition, frequency, or urgency. MUSCULOSKELETAL/RHEUMATOLOGICAL: Denies any joint pain, swelling, or any muscle pain. ENDOCRINE: Denies any polyuria or polydipsia. Past Medical History Past Medical History: Blood Disorder, Coronary Artery Disease (CAD), Hyperlipidemia, Hypertension, Osteoarthritis (OA) Additional Past Medical History / Comment(s): [place]. ANEMIA D/T HEAVY MENSTRAL CYCLE. Last Myocardial Infarction Date:: 2011 History of Any Multi-Drug Resistant Organisms: None Reported Past Surgical History: Section, Heart Catheterization, Heart Catheterization With Stent, Joint Replacement, Tubal Ligation Additional Past Surgical History / Comment(s): Stent in 2011, , Lt. hip replacement 04/02, gastric sleeve bariatric surgery 2019, heart cath. 05/06/23 - pt. states was normal, grievance manager needed to do before clearing for surgery Past Anesthesia/Blood Transfusion Reactions: No Reported Reaction Date of Last Stent Placement:: 09/2011 Smoking Status: Former smoker - Past Family History Father Family Medical History: Coronary Artery Disease (CAD), Hypertension Additional Family Medical History / Comment(s): heart failure Mother Family Medical History: Hypertension Brother(s) Family Medical History: Hypertension Medications and Allergies Home Medications Medication Instructions Recorded Confirmed Type Aspirin EC [Ecotrin Low Dose] 81 mg PO HS 02/19/18 05/06/23 History Metoprolol Succinate [Toprol Xl] 100 mg PO DAILY 02/19/18 05/06/23 History Atorvastatin [Lipitor] 40 mg PO HS 03/29/21 05/06/23 History Omeprazole 20 mg PO AC-BRKFST 03/29/21 05/06/23 History Sertraline [Zoloft] 75 mg PO QAM 04/03/21 05/06/23 History Olmesartan/Hydrochlorothiazide 1 tab PO BID 05/06/23 05/06/23 History [Olmesartan-Hctz 40-12.5 mg Tab] Aspirin 325 mg PO BID #60 tab 05/12/23 Rx HYDROcodone/APAP 7.5-325MG [[place] 1 - 2 tab PO Q6H PRN #32 tab 05/12/23 Rx 7.5-325] Sennosides [Senokot] 2 tab PO DAILY PRN #60 tablet 05/12/23 Rx Allergies Allergy/AdvReac Type Severity Reaction Status Date / Time No Known Allergies Allergy Verified 05/06/23 11:45 Physical Exam Vitals: Vital Signs Temp Pulse Pulse Resp BP BP Pulse Ox 05/12/23 13:45 66 16 123/79 97 05/12/23 13:15 60 16 133/62 95 05/12/23 13:00 60 16 122/72 95 05/12/23 12:45 54 L 16 115/68 94 L 05/12/23 12:30 53 L 16 115/74 93 L 05/12/23 12:15 55 L 16 112/71 96 05/12/23 12:00 54 L 16 123/79 98 05/12/23 11:45 55 L 16 121/82 98 05/12/23 11:30 53 L 17 121/82 99 05/12/23 11:18 51 L 17 119/83 99 05/12/23 11:03 53 L 16 117/80 100 05/12/23 10:48 97.2 F L 67 17 107/70 97 05/12/23 08:50 55 L 16 126/80 99 05/12/23 07:45 96.9 F L 68 16 144/92 99 Intake and Output 05/11/23 05/12/23 05/12/23 22:59 06:59 14:59 Intake Total 1451 Output Total 350 Balance 1101 Intake: IV 1451 Output: Estimated Blood Loss 350 Other: Weight 114.3 kg GENERAL: The patient is alert and oriented x3, not in any acute distress. Well developed, well nourished. HEENT: Pupils are round and equally reacting to light. EOMI. No scleral icterus. No conjunctival pallor. Normocephalic, atraumatic. No pharyngeal erythema. No thyromegaly. CARDIOVASCULAR: S1 and S2 present. No murmurs, rubs, or gallops. PULMONARY: Chest is clear to auscultation, no wheezing , no crackles. ABDOMEN: Soft, nontender, nondistended, normoactive bowel sounds. No palpable organomegaly. MUSCULOSKELETAL: No joint swelling or deformity. EXTREMITIES: No cyanosis, clubbing, or pedal edema. Right hip surgical wound is healing NEUROLOGICAL: Gross neurological examination did not reveal any focal deficits. SKIN: No rashes. no petechiae. Assessment and Plan Assessment: Right hip severe osteoarthritis status post right hip total arthroplasty. History of coronary artery disease status post stent Hypertension Hyperlipidemia History of osteoarthritis Plan: Continue current management Pain management Labs and medication were reviewed.. Continue same treatment. Continue with symptomatic treatment. Resume home medication. Monitor lytes and vitals. DVT and GI prophylaxis. Further recommendations depends on the clinical course of the patient DVT prophylaxis: Subcutaneous heparin GI Prophylaxis: Pepcid We recommend patient follow up with PCP in one week after discharge Thank you for consulting us
[2023-05-12] MEDS: HYDROcodone/APAP 7.5-325MG 1 EACH TAB PO PRN ×2 (15:29→22:02)
[2023-05-12] MEDS: ASPIRIN 325 MG TAB PO SCH (20:12)
[2023-05-12] MEDS ORDERED: SENNOSIDES-DOCUSATE SODIUM 1 EACH TAB PO SCH (21:00)
[2023-05-13] MEDS: LACTATED RINGERS 1,000 ML IV SCH (00:34)
[2023-05-13] MEDS: HYDROcodone/APAP 7.5-325MG 1 EACH TAB PO PRN ×2 (05:45→11:59)
[2023-05-13 08:33] VITALS: BP 115/70; PULSE 61; RESP 18; TEMP 98.4
[2023-05-13 08:43] LABS: Basophils # (A) 0.01 X 10*3/uL (0.00-0.10); Basophils % (A) 0.1 %; Eosinophils # (A) 0.02 X 10*3/uL (0.04-0.35); Eosinophils % (A) 0.2 %; HCT 30.3 % (37.2-46.3); HGB 9.5 g/dL (12.0-15.0); Lymphocytes # (A) 1.09 X 10*3/uL (0.90-5.00); Lymphocytes % (A) 9.7 %; MCH 26.8 pg (27.0-32.0); MCHC 31.4 g/dL (32.0-37.0); MCV 85.4 FL (80.0-97.0); Mean Platelet Volume 10.3 FL (9.5-12.2); Monocytes # (A) 0.68 X 10*3/uL (0.20-1.00); NRBC Per 100 WBC 0 X 10*3/uL (0.00-0.01); Neutrophils # (A) 9.43 X 10*3/uL (1.80-7.70); Neutrophils % (A) 83.6 %; Platelet Count 430 X 10*3/uL (140-440); RBC 3.55 X 10*6/uL (4.10-5.20); RDW 16.3 % (11.5-14.5); WBC 11.27 X 10*3/uL (4.50-10.00)
[2023-05-13] MEDS: ASPIRIN 325 MG TAB PO SCH (09:16)
--- NOTE | 2023-05-13 09:51 | P.DS ---
Providers Expected date of discharge: 05/13/23 Attending physician: Samy Hannon Consults: 05/12/23 08:51 Consult Physician Routine Consulting Provider: Jonn Pool Consult Reason/Comments: medical management Do you want consulting provider notified?: Yes Primary care physician: Iza Packero - Discharge Diagnosis(es) (1) Osteoarthritis of right hip Current Visit: Yes Status: Acute (2) S/P total right hip arthroplasty Current Visit: Yes Status: Acute Hospital Course: This is a 47-year-old female with known history of degenerative arthritis of the right hip. The patient presented for evaluation as an outpatient. After discussion and consideration patient elects to proceed with total hip arthroplasty. The patient is seen preoperatively by Dr. Hannon and medically cleared for surgery by their primary care physician. Patient is admitted to [facility] on 05/12/2023 for total hip arthroplasty. The procedure is performed without complication or sequelae. The patient is doing well postoperatively. Labs and vital signs are stable on day of discharge. On day of discharge patient's hip incision is healing well. There is minimal erythema. There is no drainage noted at this time. There is minimal soft tissue swelling to the hip and thigh. Patient has full foot and ankle motion without difficulty or pain. Calf is soft and nontender to palpation. Neurovascular status to the right lower extremity is intact. Patient is dis charged home in good condition. Please see med rec for accurate list of home medications. Plan - Discharge Summary Discharge Rx Participant: Yes New Discharge Prescriptions: New Aspirin 325 mg PO BID #60 tab Sennosides [Senokot] 2 tab PO DAILY PRN #60 tablet PRN Reason: Constipation HYDROcodone/APAP 7.5-325MG [[place] 7.5-325] 1 - 2 tab PO Q6H PRN #32 tab PRN Reason: Pain No Action Aspirin EC [Ecotrin Low Dose] 81 mg PO HS Metoprolol Succinate [Toprol Xl] 100 mg PO DAILY Atorvastatin [Lipitor] 40 mg PO HS Sertraline [Zoloft] 75 mg PO QAM Omeprazole 20 mg PO AC-BRKFST Olmesartan/Hydrochlorothiazide [Olmesartan-Hctz 40-12.5 mg Tab] 1 tab PO BID Discharge Medication List Aspirin EC [Ecotrin Low Dose] 81 mg PO HS 02/19/18 [History] Metoprolol Succinate [Toprol Xl] 100 mg PO DAILY 02/19/18 [History] Atorvastatin [Lipitor] 40 mg PO HS 03/29/21 [History] Omeprazole 20 mg PO AC-BRKFST 03/29/21 [History] Sertraline [Zoloft] 75 mg PO QAM 04/03/21 [History] Olmesartan/Hydrochlorothiazide [Olmesartan-Hctz 40-12.5 mg Tab] 1 tab PO BID 05/06/23 [History] Aspirin 325 mg PO BID #60 tab 05/12/23 [Rx] HYDROcodone/APAP 7.5-325MG [[place] 7.5-325] 1 - 2 tab PO Q6H PRN #32 tab 05/12/23 [Rx] Sennosides [Senokot] 2 tab PO DAILY PRN #60 tablet 05/12/23 [Rx] Follow up Appointment(s)/Referral(s): Samy Hannon DO [Doctor of Osteopathic Medicine] - 2 Weeks Activity/Diet/Wound Care/Special Instructions: Weightbearing as tolerated with walker. Leave dressing intact. Dressing may be removed by home care nurse or by patient in 7 days. Then change dressing twice daily until follow up. May shower with initial dressing intact and after removal. If dressing become saturated, please remove. Please take aspirin 325mg twice daily for 30 days to prevent blood clots. Recommend use of compression stockings daily until follow up to help prevent swelling and blood clots. May remove at night before sleeping. Please follow-up with [facility] in 2 weeks and call with any questions or concerns, . Discharge Disposition: HOME WITH HOME HEALTH SERVICES
--- NOTE | 2023-05-13 13:41 | P.PN ---
Subjective This is a pleasant 47 years old female with past medical history of hypertension, hyperlipidemia, coronary artery disease status post stent placemen t and osteoarthritis, anxiety and depression. She was admitted for her severe osteoarthritis and she underwent right total hip arthroplasty. Today is postop day #0 She is lying in bed comfortable denies any pain. No chest pain or dyspnea. No change in urine or bowel habits. No fever. Patient states she quit smoking many years ago, no alcohol or illicit drugs. Hemodynamically she is stable and she is afebrile. There is no current labs but labs one week earlier were reviewed showing unremarkable CBC except for mild anemia with 10.5 hemoglobin. Platelet count 468 and WBC 8.0. INR 0.9 no Sodium is 139, potassium 3.7, reacting 0.6. Hemoglobin A1c is 6.2% Postop BMP and liver enzymes were unremarkable. 05/13/2023 Patient is awake alert Duloxetine up in chair pleasant. Denies specific complaints No chest pain dyspnea. She did not have bowel movement but she wants to wait. She does not want more laxative. No urinary complaints. Pain at the surgical site is minimal Vitals stable, she has mildly elevated white cell count 11.2, most likely reactive with no signs of infection. Hemoglobin 9.5 most likely related to surgery which is expected No other new symptom Blood pressure is low normal therefore we recommend to keep holding olmsartan/HCTZ Patient also on metoprolol at home which will be held until she check her heart rate and blood pressure with her doctor in 2-3 days Objective - Vital Signs Vital signs: Vital Signs Temp 98.4 F 05/13/23 06:59 Pulse 61 05/13/23 06:59 Resp 18 05/13/23 06:59 BP 115/70 05/13/23 06:59 Pulse Ox 97 05/13/23 06:59 FiO2 Intake & Output 05/12/23 05/13/23 05/13/23 18:59 06:59 18:59 Intake Total 1451 Output Total 350 Balance 1101 Weight 114.3 kg Intake: IV 1451 Output: Estimated Blood Loss 350 Other: # Voids 2 1 - Exam GENERAL: The patient is alert and oriented x3, not in any acute distress. Well developed, well nourished. HEENT: Pupils are round and equally reacting to light. EOMI. No scleral icterus. No conjunctival pallor. Normocephalic, atraumatic. No pharyngeal erythema. No thyromegaly. CARDIOVASCULAR: S1 and S2 present. No murmurs, rubs, or gallops. PULMONARY: Chest is clear to auscultation, no wheezing , no crackles. ABDOMEN: Soft, nontender, nondistended, normoactive bowel sounds. No palpable organomegaly. MUSCULOSKELETAL: No joint swelling or deformity. -EXTREMITIES: No cyanosis, clubbing, or pedal edema. Surgical wound is healing NEUROLOGICAL: Gross neurological examination did not reveal any focal deficits. SKIN: No rashes. no petechiae. - Labs CBC & Chem 7: 05/13/23 05:38 Labs: Abnormal Lab Results - Last 24 Hours (Table) 05/13/23 Range/Units 05:38 WBC 11.27 H (4.50-10.00) X 10*3/uL RBC 3.55 L (4.10-5.20) X 10*6/uL Hgb 9.5 L (12.0-15.0) g/dL Hct 30.3 L (37.2-46.3) % MCH 26.8 L (27.0-32.0) pg MCHC 31.4 L (32.0-37.0) g/dL RDW 16.3 H (11.5-14.5) % Neutrophils # 9.43 H (1.80-7.70) X 10*3/uL Eosinophils # 0.02 L (0.04-0.35) X 10*3/uL Assessment and Plan Assessment: Right hip severe osteoarthritis status post right hip total arthroplasty. Asymptomatic bradycardia Postop anemia expected post op leukocytosis with no evidence of infection History of coronary artery disease status post stent Hypertension Hyperlipidemia History of osteoarthritis Plan: Continue current management Pain management Keep holding metoprolol and LIZBET inhibitor and diuretic we'll check blood pressure in 1-2 days with No need for antibiotic Keep monitor blood pressure and what cell count closely Labs and medication were reviewed.. Continue same treatment. Continue with symptomatic treatment. Resume home medication. Monitor lytes and vitals. DVT and GI prophylaxis. Further recommendations depends on the clinical course of the patient DVT prophylaxis: Subcutaneous heparin GI Prophylaxis: Pepcid We recommend patient follow up with PCP in 2-3 days after discharge Thank you for consulting us
== END 2023-05-13 14:39 | disposition home health service (06) ==
LOC: OR 07:12 → 4SSUR 10:40 → OR 05-13 14:39
PROVIDERS: ATTEND Orthopaedic Surgery
DX: M16.11 Unilateral primary osteoarthritis, right hip (principal); I10 Essential (primary) hypertension; E78.5 Hyperlipidemia, unspecified; I25.10 Atherosclerotic heart disease of native coronary artery without angina pectoris; F41.9 Anxiety disorder, unspecified; F32.A Depression, unspecified; Z79.82 Long term (current) use of aspirin; Z96.641 Presence of right artificial hip joint; Z87.891 Personal history of nicotine dependence; Z79.899 Other long term (current) drug therapy
CPT/HCPCS: 97161; 97165; 64447; 81025; 85025; 73501; 27130; C1776; J2250; J1100; J0690 ×3; J2405; J2795; J1170

== ENCOUNTER 2024-04-11 06:04 | Emergency (ER) | payer BC ==
[2024-04-11 06:11] VITALS: RESP 18
--- NOTE | 2024-04-11 06:23 | ED ---
SOB HPI - General Chief Complaint: Shortness of Breath Stated Complaint: SONIA Time Seen by Provider: 04/11/24 06:16 Source: patient, RN notes reviewed Mode of arrival: ambulatory Limitations: no limitations - History of Present Illness Initial Comments: This is a 48-year-old female who presents to the emergency department for shortness of breath. States that she has been dealing with coughing and congestion for the last month. She initially went to urgent care and was put on antibiotics and steroids, but has not gotten any relief. The cough has since persisted and for the last 2 days she has been increasingly short of breath. She has some associated chest pain and congestion which she attributes to the coughing. She has been having to sleep sitting up as opposed to laying flat due to the difficulty breathing. Denies any fevers/chills. Cough is mildly productive. MD Complaint: shortness of breath, cough - Related Data Home Medications Medication Instructions Recorded Confirmed Aspirin EC [Ecotrin Low Dose] 81 mg PO HS 02/19/18 05/06/23 Atorvastatin [Lipitor] 40 mg PO HS 03/29/21 05/06/23 Omeprazole 20 mg PO AC-BRKFST 03/29/21 05/06/23 Sertraline [Zoloft] 75 mg PO QAM 04/03/21 05/06/23 Olmesartan/Hydrochlorothiazide 1 tab PO BID 05/06/23 05/06/23 [Olmesartan-Hctz 40-12.5 mg Tab] Previous Rx's Medication Instructions Recorded Aspirin 325 mg PO BID #60 tab 05/12/23 HYDROcodone/APAP 7.5-325MG [Damar 1 - 2 tab PO Q6H PRN #32 tab 05/12/23 7.5-325] Sennosides [Senokot] 2 tab PO DAILY PRN #60 tablet 05/12/23 Metoprolol Succinate (ER) [Toprol 100 mg PO DAILY 30 Days tab 05/13/23 XL] Albuterol Sulfate [Albuterol 1 - 2 puff PO Q4-6H PRN #8.5 gm 04/11/24 Sulfate Hfa] Azithromycin [Zithromax] 250 mg PO DIRECTED 5 Days #6 tab 04/11/24 Benzonatate [Tessalon Perle] 200 mg PO TID PRN #30 capsule 04/11/24 Allergies Allergy/AdvReac Type Severity Reaction Status Date / Time No Known Allergies Allergy Verified 04/11/24 06:11 Review of Systems ROS Statement: Those systems with pertinent positive or pertinent negative responses have been documented in the HPI. ROS Other: All systems not noted in ROS Statement are negative. Past Medical History Past Medical History: Blood Disorder, Coronary Artery Disease (CAD), Hyperlipidemia, Hypertension, Myocardial Infarction (ME), Osteoarthritis (OA) Additional Past Medical History / Comment(s): ME. ANEMIA D/T HEAVY MENSTRAL CYCLE. Last Myocardial Infarction Date:: 2011 History of Any Multi-Drug Resistant Organisms: None Reported Past Surgical History: Section, Heart Catheterization, Heart Catheterization With Stent, Joint Replacement, Tubal Ligation Additional Past Surgical History / Comment(s): Stent in 2011, , Lt. hip replacement 04/02, gastric sleeve bariatric surgery 2019, heart cath. 05/06/23 - pt. 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 R hip januray 2023 Past Anesthesia/Blood Transfusion Reactions: No Reported Reaction Date of Last Stent Placement:: 09/2011 Past Psychological History: Anxiety, Depression Smoking Status: Former smoker - Past Family History Father Family Medical History: Coronary Artery Disease (CAD), Hypertension Additional Family Medical History / Comment(s): heart failure Mother Family Medical History: Hypertension Brother(s) Family Medical History: Hypertension General Exam Limitations: no limitations General appearance: alert, in no apparent distress Head exam: Present: atraumatic, normocephalic, normal inspection Respiratory exam: Present: normal lung sounds bilaterally. Absent: respiratory distress, wheezes, rales, rhonchi, stridor Cardiovascular Exam: Present: regular rate, normal rhythm, normal heart sounds. Absent: systolic murmur, diastolic murmur, rubs, gallop, clicks Neurological exam: Present: alert, oriented X3, CN II-XII intact Psychiatric exam: Present: normal affect, normal mood Skin exam: Present: warm, dry, intact, normal color. Absent: rash Course Vital Signs 04/11/24 04/11/24 06:09 09:21 Temperature 98.5 F 98.8 F Pulse Rate 75 68 Respiratory 18 18 Rate Blood Pressure 185/105 165/99 O2 Sat by Pulse 97 98 Oximetry Medical Decision Making - Medical Decision Making This is a 48-year-old female who presents to the emergency department for shortness of breath. Was pt. sent in by a medical professional or institution? @ -No Did you speak to anyone other than the patient for history? @ -No Did you review nursing and triage notes? @ -Yes, and I agree, it is accurate with regards to the patient's symptoms. Were old charts reviewed? @ -No Differential Diagnosis? @ -Differential Dyspnea: Coronary syndrome, arrhythmia, tamponade, asthma, COPD, pulmonary embolism, pneumonia, pneumothorax, pulmonary effusion, anaphylaxis, diabetic ketoacidosis, flailed chest, pulmonary contusion, diaphragmatic rupture, anemia, neuromuscular, this is not meant to be an all-inclusive list. EKG interpreted by me (3pts min.)? @ -EKG interpreted by me demonstrating the following: Sinus rhythm. Ventricular rate 69 bpm, DC interval 183 ms, QRS duration 92 ms, QTc 432 ms. X-rays interpreted by me (1pt min.)? @ -Chest x-ray obtained, my interpretation identifies no localized consolidations or infiltrates. CT interpreted by me (1pt min.)? @ -CTA of the chest obtained. My interpretation identifies no evidence of a pulmonary embolus. U/S interpreted by me (1pt. min.)? @ -Not obtained What testing was considered but not performed? (CT, X-rays, U/S, labs)? Why? @ -None What meds were considered but not given? Why? @ -None Did you discuss the management of the patient with other professionals? @ -No Did you reconcile home meds? @ -No Was smoking cessation discussed for >3mins.? @ -No Was critical care preformed (if so, how long)? @ -No Were there social determinants of health that impacted care today? How? (Homelessness, low income, unemployed, alcoholism, drug addiction, trans portation, low edu. Level, literacy, decrease access to med. care, fci, rehab)? @ -No Was there de-escalation of care discussed even if they declined? (Discuss DNR or withdrawal of care, Hospice)? @ -No What co-morbidities impacted this encounter? (DM, HTN, Smoking, COPD, CAD, Cancer, CVA, Hep., AIDS, mental health diagnosis, sleep apnea, morbid obesity)? @ -CAD, HLD, HTN Was patient admitted / discharged? @ -Discharged. Lab work demonstrates mild leukocytosis with a white blood cell count of 10.9. BNP elevated at 1360. D-dimer also elevated at 0.81. Chest x- ray reveals no acute pulmonary process. However, there may be some increasing prominence of the right main pulmonary artery. They advised follow-up for pulmonary hypertension. Underlying mass should also be considered. CTA of the chest was then obtained. No evidence of a pulmonary embolus was identified. She does have scattered mild infiltrates in the right lung and they advised correlation for pneumonia. Findings reviewed with the patient. The acute onset of the shortness of breath would be more likely to be associated with pneumonia. However, she will need follow-up with her primary care provider for further evaluation of potential pulmonary hypertension. A prescription for azithromycin, Tessalon Perles, and albuterol inhaler provided. She was given strict return parameters. Patient discharged home in stable condition. Case discussed with ED attending Dr. Kent. Return precautions reviewed in depth, the patient is instructed to return to the emergency department with any new, worsening, or concerning symptoms. Patient verbalized understanding. Undiagnosed new problem with uncertain prognosis? @ -None Drug Therapy requiring intensive monitoring for toxicity (Heparin, Nitro, Insulin, Cardizem)? @ -None Were any procedures done? @ -None Diagnosis/symptom? @ -Pneumonia Acute, or Chronic, or Acute on Chronic? @ -Acute Uncomplicated (without systemic symptoms) or Complicated (systemic symptoms)? @ -Uncomplicated Side effects of treatment? @ -None Exacerbation, Progression, or Severe Exacerbation] @ -Not applicable Poses a threat to life or bodily function? @ -Unlikely - Lab Data Result diagrams: 04/11/24 06:16 04/11/24 06:16 Lab Results 04/11/24 04/11/24 04/11/24 Range/Units 06:16 06:16 06:16 WBC 10.9 H (3.8-10.6) k/uL RBC 3.94 (3.80-5.40) m/uL Hgb 8.8 L (11.4-16.0) gm/dL Hct 28.3 L (34.0-46.0) % MCV 71.9 L (80.0-100.0) fL MCH 22.3 L (25.0-35.0) pg MCHC 31.1 (31.0-37.0) g/dL RDW 17.3 H (11.5-15.5) % Plt Count 520 H (150-450) k/uL MPV 7.1 Neutrophils % 82 % Lymphocytes % 10 % Monocytes % 3 % Eosinophils % 4 % Basophils % 0 % Neutrophils # 8.9 H (1.3-7.7) k/uL Lymphocytes # 1.1 (1.0-4.8) k/uL Monocytes # 0.3 (0-1.0) k/uL Eosinophils # 0.5 (0-0.7) k/uL Basophils # 0.0 (0-0.2) k/uL Hypochromasia Marked Poikilocytosis Slight Anisocytosis Slight Microcytosis Moderate D-Dimer (<0.60) mg/L FEU Sodium 137 (137-145) mmol/L Potassium 4.0 (3.5-5.1) mmol/L Chloride 107 (98-107) mmol/L Carbon Dioxide 22 (22-30) mmol/L Anion Gap 8 mmol/L BUN 7 (7-17) mg/dL Creatinine 0.57 (0.52-1.04) mg/dL Est GFR (CKD-EPI)AfAm >90 (>60 ml/min/1.73 sqM) Est GFR (CKD-EPI)NonAf >90 (>60 ml/min/1.73 sqM) Glucose 99 (74-99) mg/dL Plasma Lactic Acid Asaf 1.0 (0.7-2.0) mmol/L Calcium 8.8 (8.4-10.2) mg/dL Magnesium 1.8 (1.6-2.3) mg/dL Total Bilirubin 0.8 (0.2-1.3) mg/dL AST 16 (14-36) U/L ALT 12 (4-34) U/L Alkaline Phosphatase 89 (38-126) U/L Troponin I (0.000-0.034) ng/mL NT-Pro-B Natriuret Pep 1360 pg/mL Total Protein 7.0 (6.3-8.2) g/dL Albumin 4.0 (3.5-5.0) g/dL Influenza Type A (PCR) (Not Detectd) Influenza Type B (PCR) (Not Detectd) RSV (PCR) (Not Detectd) SARS-CoV-2 (PCR) (Not Detectd) 04/11/24 04/11/24 04/11/24 Range/Units 06:16 06:17 06:17 WBC (3.8-10.6) k/uL RBC (3.80-5.40) m/uL Hgb (11.4-16.0) gm/dL Hct (34.0-46.0) % MCV (80.0-100.0) fL MCH (25.0-35.0) pg MCHC (31.0-37.0) g/dL RDW (11.5-15.5) % Plt Count (150-450) k/uL MPV Neutrophils % % Lymphocytes % % Monocytes % % Eosinophils % % Basophils % % Neutrophils # (1.3-7.7) k/uL Lymphocytes # (1.0-4.8) k/uL Monocytes # (0-1.0) k/uL Eosinophils # (0-0.7) k/uL Basophils # (0-0.2) k/uL Hypochromasia Poikilocytosis Anisocytosis Microcytosis D-Dimer 0.81 H (<0.60) mg/L FEU Sodium (137-145) mmol/L Potassium (3.5-5.1) mmol/L Chloride (98-107) mmol/L Carbon Dioxide (22-30) mmol/L Anion Gap mmol/L BUN (7-17) mg/dL Creatinine (0.52-1.04) mg/dL Est GFR (CKD-EPI)AfAm (>60 ml/min/1.73 sqM) Est GFR (CKD-EPI)NonAf (>60 ml/min/1.73 sqM) Glucose (74-99) mg/dL Plasma Lactic Acid Asaf (0.7-2.0) mmol/L Calcium (8.4-10.2) mg/dL Magnesium (1.6-2.3) mg/dL Total Bilirubin (0.2-1.3) mg/dL AST (14-36) U/L ALT (4-34) U/L Alkaline Phosphatase (38-126) U/L Troponin I <0.012 (0.000-0.034) ng/mL NT-Pro-B Natriuret Pep pg/mL Total Protein (6.3-8.2) g/dL Albumin (3.5-5.0) g/dL Influenza Type A (PCR) Not Detected (Not Detectd) Influenza Type B (PCR) Not Detected (Not Detectd) RSV (PCR) Not Detected (Not Detectd) SARS-CoV-2 (PCR) Not Detected (Not Detectd) - Radiology Data Radiology results: report reviewed, image reviewed Disposition Clinical Impression: Pneumonia Disposition: HOME SELF-CARE Instructions (If sedation given, give patient instructions): Pneumonia (ED) Additional Instructions: Return to the emergency department with any new, worsening, or concerning symptoms. Take the antibiotic as prescribed for 5 days. You can take the cough medication up to every 8 hours as needed. You can use the albuterol inhaler every 4-6 hours as needed for shortness of breath. Follow up with your primary care provider in 1-2 days. Prescriptions: Albuterol Sulfate [Albuterol Sulfate Hfa] 1 - 2 puff PO Q4-6H PRN #8.5 gm PRN Reason: Shortness Of Breath Benzonatate [Tessalon Perle] 200 mg PO TID PRN #30 capsule PRN Reason: Cough Azithromycin [Zithromax] 250 mg PO DIRECTED 5 Days #6 tab Is patient prescribed a controlled substance at d/c from ED?: No Referrals: Iza Pimentel MD [Primary Care Provider] - 1-2 days Time of Disposition: 09:08
[2024-04-11 06:49] LABS: Anisocytosis Slight; Basophils % (A) 0 %; Eosinophils # (A) 0.5 k/uL (0-0.7); Eosinophils % (A) 4 %; HCT 28.3 % (34.0-46.0); HGB 8.8 gm/dL (11.4-16.0); Hypochromasia Marked; Lymphocytes # (A) 1.1 k/uL (1.0-4.8); Lymphocytes % (A) 10 %; MCH 22.3 pg (25.0-35.0); MCHC 31.1 g/dL (31.0-37.0); MCV 71.9 fL (80.0-100.0); Mean Platelet Volume 7.1; Microcytosis Moderate; Monocytes # (A) 0.3 k/uL (0-1.0); Monocytes % (A) 3 %; Neutrophils # (A) 8.9 k/uL (1.3-7.7); Neutrophils % (A) 82 %; Platelet Count 520 k/uL (150-450); Poikilocytosis Slight; RBC 3.94 m/uL (3.80-5.40); RDW 17.3 % (11.5-15.5); WBC 10.9 k/uL (3.8-10.6)
[2024-04-11 06:59] LABS: ALT 12 U/L (4-34); AST 16 U/L (14-36); African American GFR (CKD) >90 (>60 ml/min/1.73 sqM); Alkaline Phosphatase 89 U/L (38-126); Anion Gap 8 mmol/L; Blood Urea Nitrogen 7 mg/dL (7-17); Calcium 8.8 mg/dL (8.4-10.2); Carbon Dioxide 22 mmol/L (22-30); Chloride 107 mmol/L (98-107); Glucose 99 mg/dL (74-99); Magnesium 1.8 mg/dL (1.6-2.3); Non-African American GFR(CKD) >90 (>60 ml/min/1.73 sqM); Sodium 137 mmol/L (137-145); Total Bilirubin 0.8 mg/dL (0.2-1.3)
[2024-04-11 07:08] LABS: NT-Pro-B-Type Natriuretic Pept 1360 pg/mL
--- NOTE | 2024-04-11 07:27 | XR ---
EXAMINATION TYPE: XR chest 2V DATE OF EXAM: 04/11/2024 6:55 AM COMPARISON: 05/06/2023 CLINICAL INDICATION: Female, 48 years old with history of difficulty breathing, TECHNIQUE: XR chest 2V view(s) obtained. FINDINGS: The heart size is normal. Right Main pulmonary artery is increased in diameter from comparison.The pulmonary vasculature is oth erwise normal. The lungs are clear. IMPRESSION: 1. No acute pulmonary process. 2. There may be some increasing prominence of the right main pulmonary artery. Follow-up for pulmona ry hypertension. Underlying Mass should be considered. [facility], , 04/11/2024 7:24 AM
--- NOTE | 2024-04-11 07:54 | CT ---
EXAMINATION TYPE: CT chest angio for PE DATE OF EXAM: 04/11/2024 7:40 AM COMPARISON: None. CLINICAL INDICATION: Female, 48 years old with history of SONIA, elevated d-dimer, ELEVATED D-DIMER TECHNIQUE: CT of the chest is performed on a spiral scan at 2 mm thick sections. Study is performed with intravenous contrast timed for evaluation for pulmonary embolism. This will limit additional po rtions of the evaluation. 3-D MIP images reconstructed by the technologist are reviewed on the compu ter in the coronal and sagittal planes. Contrast used:100 mL of Isovue 300 with IV Contrast, (none if empty) Oral contrast used: (none if empty) CT DLP: 524.2 mGycm, Automated exposure control for dose reduction was used. FINDINGS: No persistent filling defects are evident to suggest an acute pulmonary embolism. No mediastinal or hilar adenopathy enlarged by CT criteria is evident. The ascending aorta diameter at the level of the main pulmonary artery is 4.4 cm. The main pulmonary artery diameter at the bifurcation is 3.9 cm. Small hiatal hernia may be present. Small bilateral pleural effusions are present. There may be some mild pleural thickening along the le ft lateral lung sulcus, example series 401 image 131. Some scattered infiltrate is right midlung. Correlate for an infectious etiology Limited CT sections were through the upper abdomen. Upper abdomen appears unremarkable. IMPRESSION: 1. No acute pulmonary embolism. 2. Scattered mild infiltrates within the right mid lung. Correlate for pneumonia. 3. Ascending thoracic aortic aneurysm 4.4 cm. [facility], , 04/11/2024 7:52 AM
[2024-04-11 09:21] VITALS: BP 165/99; PULSE 68; TEMP 98.8
== END 2024-04-11 09:25 | disposition home or self-care (01) ==
LOC: EC 06:04
DX: J18.9 Pneumonia, unspecified organism (principal); I11.9 Hypertensive heart disease without heart failure; I25.10 Atherosclerotic heart disease of native coronary artery without angina pectoris; E78.5 Hyperlipidemia, unspecified
CPT/HCPCS: 36415; 93005; 85379; 83880; 80053; 83605; 83735; 84484; 85025; 87636; 71046; 71275; 99285; Q9967

== ENCOUNTER 2024-04-23 04:04 | Observation (INO) | payer BC ==
[2024-04-23 04:09] VITALS: TEMP 98
[2024-04-23 05:46] LABS: Anisocytosis Slight; Basophils # (A) 0.1 k/uL (0-0.2); Basophils % (A) 1 %; Eosinophils # (A) 0.4 k/uL (0-0.7); Eosinophils % (A) 4 %; HGB 9.5 gm/dL (11.4-16.0); Hypochromasia Marked; Lymphocytes % (A) 22 %; MCH 21.6 pg (25.0-35.0); MCHC 30.8 g/dL (31.0-37.0); MCV 70.2 fL (80.0-100.0); Mean Platelet Volume 6.7; Microcytosis Marked; Monocytes # (A) 0.4 k/uL (0-1.0); Monocytes % (A) 5 %; Neutrophils # (A) 6.2 k/uL (1.3-7.7); Neutrophils % (A) 67 %; Platelet Count 620 k/uL (150-450); RBC 4.41 m/uL (3.80-5.40); RDW 16.6 % (11.5-15.5); WBC 9.2 k/uL (3.8-10.6)
--- NOTE | 2024-04-23 05:46 | ED ---
General Adult HPI - General Chief complaint: Shortness of Breath Stated complaint: Shortness of Breath, Light Headed Time Seen by Provider: 04/23/24 04:40 Source: patient, RN notes reviewed, old records reviewed Mode of arrival: ambulatory Limitations: no limitations - History of Present Illness Initial comments: Patient is a 48-year-old female who presents emergency department complaining of dyspnea. Patient has been having shortness of breath for almost 2 months at this point. He has received numerous workups. PCP thinks it may be related to iron studies. Patient has been seen in our emergency department previously and diagnosed with pneumonia. However during that visit back in March, CT angiogram did reveal possible pulmonary hypertension, small bilateral pleural effusions, as well as an ascending thoracic aortic aneurysm of 4.4 cm. Workup for PE, cardiac etiology negative for the patient at those times. Was discharged home. BNP was elevated at that time. Patient states that she continues to feel short of breath without any clear etiology or answers. Patient does appear to be more anemic now versus 1 year ago at this time based on that visit as well. Presents for further evaluation at this time. She is not on blood thinners. Apparently orthostatic hypotension has been present for the patient as well. She states she is feeling worse, with lightheadedness when she stands up, exertional dyspnea, and denies orthopnea or lower extremity swelling. Presents for further evaluation at this time.Patient does have history of CT, retention, hyperlipidemia. - Related Data Home Medications Medication Instructions Recorded Confirmed Aspirin EC [Ecotrin Low Dose] 81 mg PO DAILY 02/19/18 04/23/24 Atorvastatin [Lipitor] 40 mg PO HS 03/29/21 04/23/24 Omeprazole 20 mg PO AC-[id number] 03/29/21 04/23/24 Sertraline [Zoloft] 100 mg PO DAILY 04/23/24 04/23/24 Previous Rx's Medication Instructions Recorded Metoprolol Succinate (ER) [Toprol 100 mg PO DAILY 30 Days tab 05/13/23 XL] Nitroglycerin Sl Tabs [Nitrostat] 0.4 mg SUBLINGUAL Q5M PRN tab 04/23/24 Olmesartan/Hydrochlorothiazide 1 each PO DAILY #30 tab 04/23/24 [Olmesartan-Hctz 20-12.5 mg Tab] Allergies Allergy/AdvReac Type Severity Reaction Status Date / Time No Known Allergies Allergy Verified 04/23/24 09:54 Review of Systems ROS Statement: Those systems with pertinent positive or pertinent negative responses have been documented in the HPI. Review of Systems: CONST: Denies fever EYES: Denies blurry vision ENT: Denies nasal congestion C/V: Denies Chest pain RESP: Endorses exertional dyspnea GI: Denies abdominal pain : Denies dysuria SKIN: Denies rash. MSK: Denies joint pain. NEURO: Denies headache ROS Other: All systems not noted in ROS Statement are negative. Past Medical History Past Medical History: Blood Disorder, Coronary Artery Disease (CAD), Hyperlipidemia, Hypertension, Myocardial Infarction (CT), Osteoarthritis (OA) Additional Past Medical History / Comment(s): CT. ANEMIA D/T HEAVY MENSTRAL CYCLE. Last Myocardial Infarction Date:: 2011 History of Any Multi-Drug Resistant Organisms: None Reported Past Surgical History: Section, Heart Catheterization, Heart Catheterization With Stent, Joint Replacement, Tubal Ligation Additional Past Surgical History / Comment(s): Stent in 2011, , Lt. hip replacement 04/02, gastric sleeve bariatric surgery 2019, heart cath. 05/06/23 - pt. 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 R hip januray 2023 Past Anesthesia/Blood Transfusion Reactions: No Reported Reaction Date of Last Stent Placement:: 09/2011 Past Psychological History: Anxiety, Depression Smoking Status: Former smoker Past Alcohol Use History: Occasional Past Drug Use History: None Reported - Past Family History Father Family Medical History: Coronary Artery Disease (CAD), Hypertension Additional Family Medical History / Comment(s): heart failure Mother Family Medical History: Hypertension Brother(s) Family Medical History: Hypertension General Exam - General Exam Comments Initial Comments: General: Appears in no acute distress. HEAD: Normal with no signs of head trauma. EYES: PERRLA, EOMI, conjunctiva normal, no discharge. ENT: Hearing grossly intact, normal oropharynx. RESPIRATORY: Clear breath sounds bilaterally. No wheezes, rales, or rhonchi. C/V: Regular rate and rhythm. S1 and S2 auscultated, no edema, peripheral pulses 2+ and intact throughout ABD: Abd is soft, nontender, nondistended EXT: Normal range of motion, no obvious deformity SKIN: No rashes or lesions observed on exposed skin. NEURO: Alert and oriented x 4. Limitations: no limitations Course Vital Signs 04/23/24 04/23/24 04/23/24 04:06 07:00 07:24 Temperature 98 F Pulse Rate 104 H 68 Pulse Rate [ 80 Sitting] Pulse Rate [ 78 Standing] Pulse Rate [ 66 Supine Senior Cost Analyst] Respiratory 18 18 Rate Blood Pressure 149/87 109/68 Blood Pressure 124/81 [Sitting] Blood Pressure 123/71 [Standing] Blood Pressure 128/74 [Supine] O2 Sat by Pulse 99 98 Oximetry 04/23/24 04/23/24 04/23/24 08:00 12:00 15:00 Temperature Pulse Rate 78 18 L Pulse Rate [ Sitting] Pulse Rate [ Standing] Pulse Rate [ Supine Senior Cost Analyst] Respiratory 18 16 16 Rate Blood Pressure 123/72 123/81 Blood Pressure [Sitting] Blood Pressure [Standing] Blood Pressure [Supine] O2 Sat by Pulse 97 97 Oximetry Medical Decision Making - Medical Decision Making Was pt. sent in by a medical professional or institution (, PA, WAITER/WAITRESS TAKE OUT, urgent care, hospital, or fpc...) When possible be specific @ -No Did you speak to anyone other than the patient for history (EMS, parent, family, police, friend...)? What history was obtained from this source @ -No Did you review nursing and triage notes (agree or disagree)? Why? @ -I reviewed and agree with nursing and triage notes Were old charts reviewed (outside hosp., previous admission, EMS record, old EKG, old radiological studies, urgent care reports/EKG's, fpc records)? Report findings @ -Reviewed old charts from March 2024 when patient presented to the ER. Remarkable for anemia, possible pulmonary hypertension on CT, ascending thoracic aortic aneurysm. Differential Diagnosis (chest pain, altered mental status, abdominal pain women, abdominal pain men, vaginal bleeding, weakness, fever, dyspnea, syncope, headache, dizziness, GI bleed, back pain, seizure, CVA, palpatations, mental health, musculoskeletal)? @ -Differential Dyspnea: Coronary syndrome, arrhythmia, tamponade, asthma, COPD, pulmonary embolism, pneumonia, pneumothorax, pulmonary effusion, anaphylaxis, diabetic ketoacidosis, flailed chest, pulmonary contusion, diaphragmatic rupture, anemia, n euromuscular, this is not meant to be an all-inclusive list. EKG interpreted by me (3pts min.). @ -As above X-rays interpreted by me (1pt min.). @ -Chest x-ray reveals no obvious acute cardiopulmonary process. CT interpreted by me (1pt min.). @ -None done U/S interpreted by me (1pt. min.). @ -None done What testing was considered but not performed or refused? (CT, X-rays, U/S, labs)? Why? @ -None What meds were considered but not given or refused? Why? @ -None Did you discuss the management of the patient with other professionals (professionals i.e. DrArcadio, PA, WAITER/WAITRESS TAKE OUT, lab, RT, psych nurse, social media editor, set up mechanic stamping machines, teacher, environmental officer, vocational case manager)? Give summary @ -I spoke with the admitting provider, FLIP Conde of [facility] who accepted the patient. Was smoking cessation discussed for >3mins.? @ -No Was critical care preformed (if so, how long)? @ -No Were there social determinants of health that impacted care today? How? (Homelessness, low income, unemployed, alcoholism, drug addiction, transportation, low edu. Level, literacy, decrease access to med. care, senior living, rehab)? @ -No Was there de-escalation of care discussed even if they declined (Discuss DNR or withdrawal of care, Hospice)? DNR status @ -No What co-morbidities impacted this encounter? (DM, HTN, Smoking, COPD, CAD, Cancer, CVA, ARF, Chemo, Hep., AIDS, mental health diagnosis, sleep apnea, morbid obesity)? @ -None Was patient admitted / discharged? Hospital course, mention meds given and route, prescriptions, significant lab abnormalities, going to OR and other pertinent info. @ -Based on the patient's presentation and physical exam, presents emergency department complaining of dyspnea that has been worsening over the last 2 months or so with lightheadedness as well as what sounds like orthostatic hypotension. Seems to be a chronic issue however has been affecting her more over the last week or so. Did not have any issues until around of last year. Patient has been worked up multiple times. Was seen here in March and had a small ascending thoracic aortic aneurysm, as well as possible pneumonia, bilateral pleural effusions that were small, as well as possible pulmonary hypertension. Patient is still feeling the same way without much improvement. 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 Presents today as symptoms have worsened and wants to be further evaluated at this time. Vitals are currently within acceptable limits. Will repeat cardiopulmonary workup. Echo was ordered. Patient will be likely admitted to [facility] for echo completion. She was in agreement this plan. EKG shows no signs of acute ischemia.Chest x-ray reveals no obvious acute cardiopulmonary process. Laboratory studies are remarkable for her anemia which is improved from March, as well as undetectable troponin and BNP within normal limits. I updated the patient. Will still move forward with admission at this time for cardiology evaluation and echo. Patient was in agreement this plan. I spoke with the admitting provider, FLIP Conde of [facility] who accepted the lynette ent. Undiagnosed new problem with uncertain prognosis? @ -No Drug Therapy requiring intensive monitoring for toxicity (Heparin, Nitro, Insulin, Cardizem)? @ -No Were any procedures done? @ -No Diagnosis/symptom? @ -Dyspnea of unknown etiology Acute, or Chronic, or Acute on Chronic? @ -Acute on chronic Uncomplicated (without systemic symptoms) or Complicated (systemic symptoms)? @ -Complicated Side effects of treatment? @ -None Exacerbation, Progression, or Severe Exacerbation] @ -No Poses a threat to life or bodily function? @ -Potentially, yes - Lab Data Result diagrams: 04/23/24 04:56 04/23/24 04:56 Lab Results 04/23/24 04/23/24 04/23/24 Range/Units 04:56 04:56 04:56 WBC 9.2 (3.8-10.6) k/uL RBC 4.41 (3.80-5.40) m/uL Hgb 9.5 L (11.4-16.0) gm/dL Hct 31.0 L (34.0-46.0) % MCV 70.2 L (80.0-100.0) fL MCH 21.6 L (25.0-35.0) pg MCHC 30.8 L (31.0-37.0) g/dL RDW 16.6 H (11.5-15.5) % Plt Count 620 H (150-450) k/uL MPV 6.7 Neutrophils % 67 % Lymphocytes % 22 % Monocytes % 5 % Eosinophils % 4 % Basophils % 1 % Neutrophils # 6.2 (1.3-7.7) k/uL Lymphocytes # 2.0 (1.0-4.8) k/uL Monocytes # 0.4 (0-1.0) k/uL Eosinophils # 0.4 (0-0.7) k/uL Basophils # 0.1 (0-0.2) k/uL Hypochromasia Marked Anisocytosis Slight Microcytosis Marked ESR (0-20) mm/Hr PT 10.4 (10.0-12.5) sec INR 0.9 (<1.2) APTT 37.8 H (22.0-30.0) sec Sodium (137-145) mmol/L Potassium (3.5-5.1) mmol/L Chloride (98-107) mmol/L Carbon Dioxide (22-30) mmol/L Anion Gap mmol/L BUN (7-17) mg/dL Creatinine (0.52-1.04) mg/dL Est GFR (CKD-EPI)AfAm (>60 ml/min/1.73 sqM) Est GFR (CKD-EPI)NonAf (>60 ml/min/1.73 sqM) Glucose (74-99) mg/dL Calcium (8.4-10.2) mg/dL Magnesium (1.6-2.3) mg/dL Iron (50-170) UG/DL TIBC (228-460) UG/DL % Saturation (12.00-45.00) Transferrin (204.0-354.0) mg/dL Total Bilirubin (0.2-1.3) mg/dL AST (14-36) U/L ALT (4-34) U/L Alkaline Phosphatase (38-126) U/L Troponin I (0.000-0.034) ng/mL NT-Pro-B Natriuret Pep pg/mL Total Protein (6.3-8.2) g/dL Albumin (3.5-5.0) g/dL Urine Color Colorless Urine Appearance Clear (Clear) Urine pH 5.5 (5.0-8.0) Ur Specific [place] 1.004 (1.001-1.035) Urine Protein Negative (Negative) Urine Glucose (UA) Negative (Negative) Urine Ketones Negative (Negative) Urine Blood Small H (Negative) Urine Nitrite Negative (Negative) Urine Bilirubin Negative (Negative) Urine Urobilinogen <2.0 (<2.0) mg/dL Ur Leukocyte Esterase Negative (Negative) Urine RBC <1 (0-5) /hpf Urine WBC 1 (0-5) /hpf Ur Squamous Epith Cells 1 (0-4) /hpf Urine Bacteria Few H (None) /hpf Urine Mucus Rare H (None) /hpf Urine Yeast (Budding) Rare H (None) /hpf Influenza Type A (PCR) (Not Detectd) Influenza Type B (PCR) (Not Detectd) RSV (PCR) (Not Detectd) SARS-CoV-2 (PCR) (Not Detectd) 04/23/24 04/23/24 04/23/24 Range/Units 04:56 04:56 04:56 WBC (3.8-10.6) k/uL RBC (3.80-5.40) m/uL Hgb (11.4-16.0) gm/dL Hct (34.0-46.0) % MCV (80.0-100.0) fL MCH (25.0-35.0) pg MCHC (31.0-37.0) g/dL RDW (11.5-15.5) % Plt Count (150-450) k/uL MPV Neutrophils % % Lymphocytes % % Monocytes % % Eosinophils % % Basophils % % Neutrophils # (1.3-7.7) k/uL Lymphocytes # (1.0-4.8) k/uL Monocytes # (0-1.0) k/uL Eosinophils # (0-0.7) k/uL Basophils # (0-0.2) k/uL Hypochromasia Anisocytosis Microcytosis ESR (0-20) mm/Hr PT (10.0-12.5) sec INR (<1.2) APTT (22.0-30.0) sec Sodium 141 (137-145) mmol/L Potassium 3.7 (3.5-5.1) mmol/L Chloride 107 (98-107) mmol/L Carbon Dioxide 22 (22-30) mmol/L Anion Gap 12 mmol/L BUN 12 (7-17) mg/dL Creatinine 0.62 (0.52-1.04) mg/dL Est GFR (CKD-EPI)AfAm >90 (>60 ml/min/1.73 sqM) Est GFR (CKD-EPI)NonAf >90 (>60 ml/min/1.73 sqM) Glucose 113 H (74-99) mg/dL Calcium 9.1 (8.4-10.2) mg/dL Magnesium 2.1 (1.6-2.3) mg/dL Iron 19 L (50-170) UG/DL TIBC 559 H (228-460) UG/DL % Saturation 3.40 L (12.00-45.00) Transferrin 399.0 H (204.0-354.0) mg/dL Total Bilirubin 0.1 L (0.2-1.3) mg/dL AST 27 (14-36) U/L ALT 19 (4-34) U/L Alkaline Phosphatase 93 (38-126) U/L Troponin I <0.012 (0.000-0.034) ng/mL NT-Pro-B Natriuret Pep 30 pg/mL Total Protein 7.4 (6.3-8.2) g/dL Albumin 4.3 (3.5-5.0) g/dL Urine Color Urine Appearance (Clear) Urine pH (5.0-8.0) Ur Specific [place] (1.001-1.035) Urine Protein (Negative) Urine Glucose (UA) (Negative) Urine Ketones (Negative) Urine Blood (Negative) Urine Nitrite (Negative) Urine Bilirubin (Negative) Urine Urobilinogen (<2.0) mg/dL Ur Leukocyte Esterase (Negative) Urine RBC (0-5) /hpf Urine WBC (0-5) /hpf Ur Squamous Epith Cells (0-4) /hpf Urine Bacteria (None) /hpf Urine Mucus (None) /hpf Urine Yeast (Budding) (None) /hpf Influenza Type A (PCR) Not Detected (Not Detectd) Influenza Type B (PCR) Not Detected (Not Detectd) RSV (PCR) Not Detected (Not Detectd) SARS-CoV-2 (PCR) Not Detected (Not Detectd) 04/23/24 Range/Units 04:56 WBC (3.8-10.6) k/uL RBC (3.80-5.40) m/uL Hgb (11.4-16.0) gm/dL Hct (34.0-46.0) % MCV (80.0-100.0) fL MCH (25.0-35.0) pg MCHC (31.0-37.0) g/dL RDW (11.5-15.5) % Plt Count (150-450) k/uL MPV Neutrophils % % Lymphocytes % % Monocytes % % Eosinophils % % Basophils % % Neutrophils # (1.3-7.7) k/uL Lymphocytes # (1.0-4.8) k/uL Monocytes # (0-1.0) k/uL Eosinophils # (0-0.7) k/uL Basophils # (0-0.2) k/uL Hypochromasia Anisocytosis Microcytosis ESR 33 H (0-20) mm/Hr PT (10.0-12.5) sec INR (<1.2) APTT (22.0-30.0) sec Sodium (137-145) mmol/L Potassium (3.5-5.1) mmol/L Chloride (98-107) mmol/L Carbon Dioxide (22-30) mmol/L Anion Gap mmol/L BUN (7-17) mg/dL Creatinine (0.52-1.04) mg/dL Est GFR (CKD-EPI)AfAm (>60 ml/min/1.73 sqM) Est GFR (CKD-EPI)NonAf (>60 ml/min/1.73 sqM) Glucose (74-99) mg/dL Calcium (8.4-10.2) mg/dL Magnesium (1.6-2.3) mg/dL Iron (50-170) UG/DL TIBC (228-460) UG/DL % Saturation (12.00-45.00) Transferrin (204.0-354.0) mg/dL Total Bilirubin (0.2-1.3) mg/dL AST (14-36) U/L ALT (4-34) U/L Alkaline Phosphatase (38-126) U/L Troponin I (0.000-0.034) ng/mL NT-Pro-B Natriuret Pep pg/mL Total Protein (6.3-8.2) g/dL Albumin (3.5-5.0) g/dL Urine Color Urine Appearance (Clear) Urine pH (5.0-8.0) Ur Specific [place] (1.001-1.035) Urine Protein (Negative) Urine Glucose (UA) (Negative) Urine Ketones (Negative) Urine Blood (Negative) Urine Nitrite (Negative) Urine Bilirubin (Negative) Urine Urobilinogen (<2.0) mg/dL Ur Leukocyte Esterase (Negative) Urine RBC (0-5) /hpf Urine WBC (0-5) /hpf Ur Squamous Epith Cells (0-4) /hpf Urine Bacteria (None) /hpf Urine Mucus (None) /hpf Urine Yeast (Budding) (None) /hpf Influenza Type A (PCR) (Not Detectd) Influenza Type B (PCR) (Not Detectd) RSV (PCR) (Not Detectd) SARS-CoV-2 (PCR) (Not Detectd) - EKG Data -: EKG Interpreted by Me EKG Comments: 12-lead Electrocardiogram Interpretation Note EKG was reviewed and interpreted by myself. 12-lead ECG performed at 0452 is interpreted by me as revealing normal sinus rhythm at a rate of 70 beats per minute. [place] is normal. MA interval is 179 ms, QRS duration is 104 ms, QTc is 443 ms.. There were no ST or T wave abnormalities to suggest myocardial ischemia or injury. R wave progression across the precordium was satisfactory. By my interpretation this EKG is non-diagnostic for acute ischemia. Disposition Clinical Impression: Dyspnea Disposition: ADMITTED IP TO THIS HOSP Condition: Stable Time of Disposition: 06:45
[2024-04-23 06:01] LABS: INR 0.9 (<1.2); Partial Thromboplastin Time 37.8 sec (22.0-30.0); Prothrombin Time 10.4 sec (10.0-12.5)
[2024-04-23 06:24] LABS: Appearance,Urine Clear (Clear); Bacteria,Urine Few /hpf; Bilirubin,Urine Negative (Negative); Blood,Urine Small (Negative); Budding Yeast,Urine Rare /hpf; Color,Urine Colorless; Glucose,Urine (UA) Negative (Negative); Ketones,Urine Negative (Negative); Leukocyte Esterase,Urine Negative (Negative); Mucus,Urine Rare /hpf; Nitrite,Urine Negative (Negative); PH, Urine 5.5 (5.0-8.0); Protein,Urine Negative (Negative); RBC,Urine <1 /hpf (0-5); Specific Gravity,Urine 1.004 (1.001-1.035); Squamous Epithelial Cell,Urine 1 /hpf (0-4); Urobilinogen,Urine <2.0 mg/dL (<2.0); WBC,Urine 1 /hpf (0-5)
[2024-04-23 06:34] LABS: ALT 19 U/L (4-34); AST 27 U/L (14-36); African American GFR (CKD) >90 (>60 ml/min/1.73 sqM); Albumin 4.3 g/dL (3.5-5.0); Alkaline Phosphatase 93 U/L (38-126); Anion Gap 12 mmol/L; Blood Urea Nitrogen 12 mg/dL (7-17); Calcium 9.1 mg/dL (8.4-10.2); Carbon Dioxide 22 mmol/L (22-30); Chloride 107 mmol/L (98-107); Glucose 113 mg/dL (74-99); Magnesium 2.1 mg/dL (1.6-2.3); Non-African American GFR(CKD) >90 (>60 ml/min/1.73 sqM); Potassium 3.7 mmol/L (3.5-5.1); Sodium 141 mmol/L (137-145); Total Bilirubin 0.1 mg/dL (0.2-1.3); Total Protein 7.4 g/dL (6.3-8.2)
[2024-04-23 06:41] LABS: NT-Pro-B-Type Natriuretic Pept 30 pg/mL
[2024-04-23 06:51] LABS: Influenza A Not Detected (Not Detectd); Influenza B Not Detected (Not Detectd); RSV Not Detected (Not Detectd)
[2024-04-23] MEDS ORDERED: ONDANSETRON 4 MG/2 ML VIAL IVP PRN (06:52)
[2024-04-23] MEDS ORDERED: NALOXONE 0.4 MG/ML 1 ML VIAL IV PRN (06:52)
[2024-04-23] MEDS ORDERED: ACETAMINOPHEN TAB 325 MG TAB PO PRN (06:52)
--- NOTE | 2024-04-23 07:37 | XR ---
EXAMINATION TYPE: XR chest 2V DATE OF EXAM: 04/23/2024 5:26 AM COMPARISON: None. CLINICAL INDICATION: Female, 48 years old with history of difficulty breathing, TECHNIQUE: XR chest 2V view(s) obtained. FINDINGS: The heart size is normal. The pulmonary vasculature is normal. Right main pulmonary artery does not appear as full as prior The lungs are clear. IMPRESSION: 1. No acute pulmonary process. [facility], , 04/23/2024 7:34 AM
[2024-04-23 10:22] LABS: Iron 19 UG/DL (50-170); Total Iron Binding Capacity 559 UG/DL (228-460)
[2024-04-23] MEDS ORDERED: NITROGLYCERIN SL TABS 0.4 MG TAB SUBLINGUAL PRN (10:39)
[2024-04-23] MEDS: METOPROLOL SUCCINATE (ER) 100 MG TAB.ER.24H PO SCH (10:58)
[2024-04-23] MEDS: ASPIRIN 81 MG PO SCH (10:58)
[2024-04-23] MEDS: hydroCHLOROthiazide 12.5 MG CAP PO SCH (11:46)
[2024-04-23] MEDS: LOSARTAN 50 MG TAB PO SCH (11:46)
[2024-04-23 11:56] VITALS: RESP 16
--- NOTE | 2024-04-23 13:20 | P.CRDCN ---
History of Present Illness Consult date: 04/23/24 Reason for Consult (text): Dyspnea of unknown etiology, possible pulmonary hypertension seen on prior CT History of present illness: This is a 48-year-old female patient of Dr. Alida Herrera with past medical history of OK in 2012 at age 36 status post stent, hypertension, tobacco use and dependence. We have been asked to evaluate the patient for dyspnea of unknown etiology, possible pulmonary hypertension seen on prior CT. Patient also verbalizes there was concern on a previous CT that she had an aneurysm. Patient gives history that she has not been feeling well since February. She did go to urgent care and received antibiotics at that time and had a bad cough and continued to have problems. She then presented to the emergency center on April 11 for continued cough and shortness of breath not feeling well in general. She underwent a CTA of the chest which ruled out PE. There was scattered mild infiltrates within the right mid lung and ascending thoracic aortic aneurysm 4.4 cm. Patient states that she is eating and drinking okay although she could drink more water. She states she continues to have fatigue. She had an appointment with her speedometer inspector yesterday and her blood pressure in the office was 78/46. No medication changes were made except that she was splitting up her medications and taking some in the morning and some in the evening. Patient has noted to have anemia and does not recall being told this in the past. She is also had some weight loss of 15 pounds over 2-1/2 months. She states his weight loss is unintentional. She denies having any blood in her stools. Patient also picked up smoking again and quit on . Patient did have an echocardiogram completed on Thursday at [facility] ordered by Dr. Pimentel which revealed EF of 55% with mild to moderate MR a nd PASP of 21. Patient also gives history of having a cardiac catheterization done on April 2023 prior to surgical intervention for hip replacement and this was reported as no obstructive coronary disease. Patient is seen today in the emergency center waiting for bed on the observation unit. -EKG: Sinus rhythm with no acute ST changes. -Chest x-ray: No acute process -Laboratory studies: WBC 9.2, hemoglobin 9.5. Electrolytes and renal function are normal. Iron studies consistent with chronic disease Troponin negative x 1. proBNP 30. Influenza A, influenza B, RSV, COVID-19 not detected. -Home cardiac medications: Aspirin 81 mg daily, Lipitor 40 mg at bedtime, Toprol-XL 100 mg daily, Nitrostat as needed, olmesartan/hydrochlorothiazide 40- 12.5 mg 1 tablet twice daily. Review Of Systems: At the time of my exam: CONSTITUTIONAL: Denies fever or chills. HEENT: Denies blurred vision, vision changes, or eye pain. Denies hemoptysis CARDIOVASCULAR: Denies chest pain. Denies orthopnea. Denies PND. Denies palpitations RESPIRATORY: Denies shortness of breath. GASTROINTESTINAL: Denies abdominal pain. Denies nausea or vomiting. HEMATOLOGIC: Denies bleeding disorders. GENITOURINARY: Denies any blood in urine. SKIN: Denies puritis. Denies rash. Physical examination: Gen: This is a 48-year-old female in no acute distress VS: reviewed HEENT: Head is atraumatic, normocephalic. Pupils equal, round. Sclerae is anicteric. NECK: Supple. No JVD. LUNGS: Clear to auscultation. No wheezes or rhonchi. No intercostal retractions. HEART: Regular rate and rhythm. No murmur. ABDOMEN: Soft No tenderness. EXTREMITIES: No pedal edema. No calf tenderness. NEUROLOGICAL: Patient is awake, alert and oriented x3. Assessment: Symptoms of fatigue, weight loss, lightheadedness, short of breath History of coronary artery disease with previous stent done in 2011 Anemia of chronic disease which will need outpatient workup and rule out autoimmune disorder Anemia contributing to patient's symptoms Coronary artery disease with previous stent Hypertension Tobacco use and dependence, patient quit on Plan: Resume patient's home cardiac medications with the following changes: Decrease olmesartan/hydrochlorothiazide 40-12.5 mg to half a tablet once daily Obtain sed rate and CRP No need to repeat echocardiogram as this was done this week Continue smoking cessation Reviewed CT report with the patient and her significant other at the bedside. Measurement of the ascending aorta appears to be at 3.8 cm and this would be normal range. Would recommend workup regarding anemia of chronic disease and concern for possible underlying autoimmune disorder. This can be performed by her primary care physician. Due to recent weight loss, patient may require less blood pressure medications. Note changes made above. Patient is cleared for discharge from cardiology. Would recommend follow-up with speedometer inspector, either her primary Dr. Alida Herrera, or with Dr. Herrera in [facility], and additional outpatient workup as noted above. Thank you kindly for this consultation. Nurse practitioner note has been reviewed, I agree with documented findings and plan of care. Patient was seen and examined. Past Medical History Past Medical History: Blood Disorder, Coronary Artery Disease (CAD), Hyperlipidemia, Hypertension, Myocardial Infarction (OK), Osteoarthritis (OA) Additional Past Medical History / Comment(s): OK. ANEMIA D/T HEAVY MENSTRAL CYCLE. Last Myocardial Infarction Date:: 2011 History of Any Multi-Drug Resistant Organisms: None Reported Past Surgical History: Section, Heart Catheterization, Heart Catheterization With Stent, Joint Replacement, Tubal Ligation Additional Past Surgical History / Comment(s): Stent in 2011, , Lt. hip replacement 04/02, gastric sleeve bariatric surgery 2019, heart cath. 05/06/23 - pt. states was normal, speedometer inspector needed to do before clearing for surgery. R hip januray 2023 Past Anesthesia/Blood Transfusion Reactions: No Reported Reaction Date of Last Stent Placement:: 09/2011 Past Psychological History: Anxiety, Depression Smoking Status: Former smoker Past Alcohol Use History: Occasional Past Drug Use History: None Reported - Past Family History Father Family Medical History: Coronary Artery Disease (CAD), Hypertension Additional Family Medical History / Comment(s): heart failure Mother Family Medical History: Hypertension Brother(s) Family Medical History: Hypertension Medications and Allergies Home Medications Medication Instructions Recorded Confirmed Type Aspirin EC [Ecotrin Low Dose] 81 mg PO DAILY 02/19/18 04/23/24 History Atorvastatin [Lipitor] 40 mg PO HS 03/29/21 04/23/24 History Omeprazole 20 mg PO AC-BRKFST 03/29/21 04/23/24 History Olmesartan/Hydrochlorothiazide 1 tab PO BID 05/06/23 04/23/24 History [Olmesartan-Hctz 40-12.5 mg Tab] Metoprolol Succinate (ER) [Toprol 100 mg PO DAILY 30 Days tab 05/13/23 04/23/24 Rx XL] Nitroglycerin Sl Tabs [Nitrostat] 0.4 mg SUBLINGUAL Q5M PRN 04/23/24 04/23/24 History Sertraline [Zoloft] 100 mg PO DAILY 04/23/24 04/23/24 History Allergies Allergy/AdvReac Type Severity Reaction Status Date / Time No Known Allergies Allergy Verified 04/23/24 09:54 Physical Exam Vitals: Vital Signs Temp Pulse Pulse Pulse Pulse Resp BP 04/23/24 08:00 18 04/23/24 07:24 68 18 109/68 04/23/24 07:00 80 78 66 04/23/24 04:06 98 F 104 H 18 149/87 BP BP BP Pulse Ox 04/23/24 08:00 04/23/24 07:24 98 04/23/24 07:00 124/81 123/71 128/74 04/23/24 04:06 99 Intake and Output 04/22/24 04/23/24 04/23/24 22:59 06:59 14:59 Other: Voiding Method Toilet Weight 108.862 kg Results 04/23/24 04:56 04/23/24 04:56 Cardiac Enzymes 04/23/24 04/23/24 Range/Units 04:56 04:56 AST 27 (14-36) U/L Troponin I <0.012 (0.000-0.034) ng/mL Coagulation 04/23/24 Range/Units 04:56 PT 10.4 (10.0-12.5) sec APTT 37.8 H (22.0-30.0) sec CBC 04/23/24 Range/Units 04:56 WBC 9.2 (3.8-10.6) k/uL RBC 4.41 (3.80-5.40) m/uL Hgb 9.5 L (11.4-16.0) gm/dL Hct 31.0 L (34.0-46.0) % Plt Count 620 H (150-450) k/uL Comprehensive Metabolic Panel 04/23/24 Range/Units 04:56 Sodium 141 (137-145) mmol/L Potassium 3.7 (3.5-5.1) mmol/L Chloride 107 (98-107) mmol/L Carbon Dioxide 22 (22-30) mmol/L BUN 12 (7-17) mg/dL Creatinine 0.62 (0.52-1.04) mg/dL Glucose 113 H (74-99) mg/dL Calcium 9.1 (8.4-10.2) mg/dL AST 27 (14-36) U/L ALT 19 (4-34) U/L Alkaline Phosphatase 93 (38-126) U/L Total Protein 7.4 (6.3-8.2) g/dL Albumin 4.3 (3.5-5.0) g/dL Current Medications Generic Name Dose Route Start Last Admin Trade Name Freq PRN Reason Stop Dose Admin Acetaminophen 650 mg 04/23/24 06:52 Acetaminophen Tab 325 Mg Tab PO Q6HR PRN Mild Pain or Fever > 100.5 Naloxone HCl 0.2 mg 04/23/24 06:52 Naloxone 0.4 Mg/Ml 1 Ml Vial IV Q2M PRN Opioid Reversal Ondansetron HCl 4 mg 04/23/24 06:52 Ondansetron 4 Mg/2 Ml Vial IVP Q8HR PRN Nausea And Vomiting Intake and Output 04/22/24 04/23/24 04/23/24 22:59 06:59 14:59 Other: Voiding Method Toilet Weight 108.862 kg 04/23/24 04:56 04/23/24 04:56
--- NOTE | 2024-04-23 14:02 | P.HPIM ---
History of Present Illness Pleasant 48-year-old female came in with complaints of shortness of breath patient saturations are good at this time. Patient has extensive medical history despite of her age. Patient had history of coronary disease and stents in the past patient had recent cardiac catheterization and on April 2023 which was essentially within normal limits patient apparently has pulmonary hypertension at and had a right heart cath I do not know many details about this pulmonary hypertension at this time. Patient underwent CT angio of the chest to rule out pulmonary embolism on the ER visit on April 09 which is pretty decent patient also has a ascending carotid thoracic aortic aneurysm of 4.4 cm which need to be followed up as an outpatient. Patient blood pressure was also low on admission patient has been losing weight because of the semaglutide. Patient is on antihypertensive medications at home dose of which is being cut down as she will not require higher doses of BP meds due to her weight loss. REVIEW OF SYSTEMS: All other systems are negative except those mentioned in the HPI PHYSICAL EXAMINATION: GENERAL: The patient is alert and oriented x3, not in any acute distress. Well developed, well nourished. HEENT: Pupils are round and equally reacting to light. EOMI. No scleral icterus. No conjunctival pallor. Normocephalic, atraumatic. No pharyngeal erythema. No thyromegaly. CARDIOVASCULAR: S1 and S2 present. No murmurs, rubs, or gallops. PULMONARY: Chest is clear to auscultation, no wheezing or crackles. ABDOMEN: Soft, nontender, nondistended, normoactive bowel sounds. No palpable organomegaly. MUSCULOSKELETAL: No joint swelling or deformity. EXTREMITIES: No cyanosis, clubbing, or pedal edema. NEUROLOGICAL: Gross neurological examination did not reveal any focal deficits. SKIN: No rashes. Assessment and plan -Symptoms of shortness of breath probably multifactorial may be secondary to her and pulmonary hypertension which need to be further evaluated as an outpatient. Patient is saturating well at this time. Patient does not have any chest pain no pneumonia on the x-ray patient had a recent CT angio of the chest to rule out pulmonary embolism patient does not have any other signs or symptoms of pulmonary embolism patient is not hypoxic at this time. Cardiology is recommending autoimmune workup as an outpatient. Cardiology evaluated patient and cleared for discharge. -Coronary artery disease -Symptoms of fatigue weight loss and lightheadedness secondary to hypotension. Patient's blood pressure medications are being cut down olmesartan hydrochlorothiazide dose is being cut down to half a dose -Coronary artery disease with previous stents in the past -Hypertension management as mentioned above --Anemia of chronic disease further autoimmune workup as an outpatient -Type 2 diabetes mellitus Patient will not require continued hospitalization here May need outpatient workup will be discharged today. Past Medical History Past Medical History: Blood Disorder, Coronary Artery Disease (CAD), Hyperlipidemia, Hypertension, Myocardial Infarction (OR), Osteoarthritis (OA) Additional Past Medical History / Comment(s): OR. ANEMIA D/T HEAVY MENSTRAL CYCLE. Last Myocardial Infarction Date:: 2011 History of Any Multi-Drug Resistant Organisms: None Reported Past Surgical History: Section, Heart Catheterization, Heart Catheterization With Stent, Joint Replacement, Tubal Ligation Additional Past Surgical History / Comment(s): Stent in 2011, , Lt. hip replacement 04/02, gastric sleeve bariatric surgery 2019, heart cath. 05/06/23 - pt. states was normal, hat brim curler needed to do before clearing for surgery. R hip januray 2023 Past Anesthesia/Blood Transfusion Reactions: No Reported Reaction Date of Last Stent Placement:: 09/2011 Past Psychological History: Anxiety, Depression Smoking Status: Former smoker Past Alcohol Use History: Occasional Past Drug Use History: None Reported - Past Family History Father Family Medical History: Coronary Artery Disease (CAD), Hypertension Additional Family Medical History / Comment(s): heart failure Mother Family Medical History: Hypertension Brother(s) Family Medical History: Hypertension Medications and Allergies Home Medications Medication Instructions Recorded Confirmed Type Aspirin EC [Ecotrin Low Dose] 81 mg PO DAILY 02/19/18 04/23/24 History Atorvastatin [Lipitor] 40 mg PO HS 03/29/21 04/23/24 History Omeprazole 20 mg PO AC-BRKFST 03/29/21 04/23/24 History Metoprolol Succinate (ER) [Toprol 100 mg PO DAILY 30 Days tab 05/13/23 04/23/24 Rx XL] Nitroglycerin Sl Tabs [Nitrostat] 0.4 mg SUBLINGUAL Q5M PRN tab 04/23/24 Rx Olmesartan/Hydrochlorothiazide 1 each PO DAILY #30 tab 04/23/24 Rx [Olmesartan-Hctz 20-12.5 mg Tab] Sertraline [Zoloft] 100 mg PO DAILY 04/23/24 04/23/24 History Allergies Allergy/AdvReac Type Severity Reaction Status Date / Time No Known Allergies Allergy Verified 04/23/24 09:54 Physical Exam Vitals: Vital Signs Temp Pulse Pulse Pulse Pulse Resp BP 04/23/24 12:00 78 16 123/72 04/23/24 08:00 18 04/23/24 07:24 68 18 109/68 04/23/24 07:00 80 78 66 04/23/24 04:06 98 F 104 H 18 149/87 BP BP BP Pulse Ox 04/23/24 12:00 97 04/23/24 08:00 04/23/24 07:24 98 04/23/24 07:00 124/81 123/71 128/74 04/23/24 04:06 99 Intake and Output 04/22/24 04/23/24 04/23/24 22:59 06:59 14:59 Other: Voiding Method Toilet Weight 108.862 kg Results CBC & Chem 7: 04/23/24 04:56 04/23/24 04:56 Labs: Abnormal Lab Results - Last 24 Hours (Table) 04/23/24 04/23/24 04/23/24 Range/Units 04:56 04:56 04:56 Hgb 9.5 L (11.4-16.0) gm/dL Hct 31.0 L (34.0-46.0) % MCV 70.2 L (80.0-100.0) fL MCH 21.6 L (25.0-35.0) pg MCHC 30.8 L (31.0-37.0) g/dL RDW 16.6 H (11.5-15.5) % Plt Count 620 H (150-450) k/uL APTT 37.8 H (22.0-30.0) sec Glucose (74-99) mg/dL Iron (50-170) UG/DL TIBC (228-460) UG/DL % Saturation (12.00-45.00) Transferrin (204.0-354.0) mg/dL Total Bilirubin (0.2-1.3) mg/dL Urine Blood Small H (Negative) Urine Bacteria Few H (None) /hpf Urine Mucus Rare H (None) /hpf Urine Yeast (Budding) Rare H (None) /hpf 04/23/24 Range/Units 04:56 Hgb (11.4-16.0) gm/dL Hct (34.0-46.0) % MCV (80.0-100.0) fL MCH (25.0-35.0) pg MCHC (31.0-37.0) g/dL RDW (11.5-15.5) % Plt Count (150-450) k/uL APTT (22.0-30.0) sec Glucose 113 H (74-99) mg/dL Iron 19 L (50-170) UG/DL TIBC 559 H (228-460) UG/DL % Saturation 3.40 L (12.00-45.00) Transferrin 399.0 H (204.0-354.0) mg/dL Total Bilirubin 0.1 L (0.2-1.3) mg/dL Urine Blood (Negative) Urine Bacteria (None) /hpf Urine Mucus (None) /hpf Urine Yeast (Budding) (None) /hpf
--- NOTE | 2024-04-23 14:03 | P.DS ---
Providers Date of admission: 04/23/24 06:52 Attending physician: Jonn Pool Consults: 04/23/24 06:52 Consult Physician Routine Consulting Provider: [facility] Consult Reason/Comments: dyspnea of unknown etiology, possible PHTN seen on prior CT Do you want consulting provider notified?: Yes Primary care physician: [facility] Course: Pleasant 48-year-old female came in with complaints of shortness of breath patient saturations are good at this time. Patient has extensive medical history despite of her age. Patient had history of coronary disease and stents in the past patient had recent cardiac catheterization and on April 2023 which was essentially within normal limits patient apparently has pulmonary hypertension at and had a right heart cath I do not know many details about this pulmonary hypertension at this time. Patient underwent CT angio of the chest to rule out pulmonary embolism on the ER visit on April 09 which is pretty decent patient also has a ascending carotid thoracic aortic aneurysm of 4.4 cm which need to be followed up as an outpatient. Patient blood pressure was also low on admission patient has been losing weight because of the semaglutide. Patient is on antihypertensive medications at home dose of which is being cut down as she will not require higher doses of BP meds due to her weight loss. REVIEW OF SYSTEMS: All other systems are negative except those mentioned in the HPI PHYSICAL EXAMINATION: GENERAL: The patient is alert and oriented x3, not in any acute distress. Well developed, well nourished. HEENT: Pupils are round and equally reacting to light. EOMI. No scleral icterus. No conjunctival pallor. Normocephalic, atraumatic. No pharyngeal erythema. No thyromegaly. CARDIOVASCULAR: S1 and S2 present. No murmurs, rubs, or gallops. PULMONARY: Chest is clear to auscultation, no wheezing or crackles. ABDOMEN: Soft, nontender, nondistended, normoactive bowel sounds. No palpable organomegaly. MUSCULOSKELETAL: No joint swelling or deformity. EXTREMITIES: No cyanosis, clubbing, or pedal edema. NEUROLOGICAL: Gross neurological examination did not reveal any focal deficits. SKIN: No rashes. Assessment and plan -Symptoms of shortness of breath probably multifactorial may be secondary to her and pulmonary hypertension which need to be further evaluated as an outpatient. Patient is saturating well at this time. Patient does not have any chest pain no pneumonia on the x-ray patient had a recent CT angio of the chest to rule out pulmonary embolism patient does not have any other signs or symptoms of pulmonary embolism patient is not hypoxic at this time. Cardiology is recommending autoimmune workup as an outpatient. Cardiology evaluated patient and cleared for discharge. -Coronary artery disease -Symptoms of fatigue weight loss and lightheadedness secondary to hypotension. Patient's blood pressure medications are being cut down olmesartan hydrochlorothiazide dose is being cut down to half a dose -Coronary artery disease with previous stents in the past -Hypertension management as mentioned above --Anemia of chronic disease further autoimmune workup as an outpatient -Type 2 diabetes mellitus Patient will not require continued hospitalization here May need outpatient workup will be discharged today. Patient Condition at Discharge: Stable Plan - Discharge Summary New Discharge Prescriptions: New Nitroglycerin Sl Tabs [Nitrostat] 0.4 mg SUBLINGUAL Q5M PRN tab PRN Reason: Chest Pain Olmesartan/Hydrochlorothiazide [Olmesartan-Hctz 20-12.5 mg Tab] 1 each PO DAILY #30 tab Continue Aspirin EC [Ecotrin Low Dose] 81 mg PO DAILY Atorvastatin [Lipitor] 40 mg PO HS Metoprolol Succinate (ER) [Toprol XL] 100 mg PO DAILY 30 Days tab Sertraline [Zoloft] 100 mg PO DAILY Omeprazole 20 mg PO AC-BRKFST Discontinued Nitroglycerin Sl Tabs [Nitrostat] 0.4 mg SUBLINGUAL Q5M PRN PRN Reason: Chest Pain Olmesartan/Hydrochlorothiazide [Olmesartan-Hctz 40-12.5 mg Tab] 1 tab PO BID Discharge Medication List Aspirin EC [Ecotrin Low Dose] 81 mg PO DAILY 02/19/18 [History] Atorvastatin [Lipitor] 40 mg PO HS 03/29/21 [History] Omeprazole 20 mg PO AC-BRKFST 03/29/21 [History] Metoprolol Succinate (ER) [Toprol XL] 100 mg PO DAILY 30 Days tab 05/13/23 [Rx] Nitroglycerin Sl Tabs [Nitrostat] 0.4 mg SUBLINGUAL Q5M PRN tab 04/23/24 [Rx] Olmesartan/Hydrochlorothiazide [Olmesartan-Hctz 20-12.5 mg Tab] 1 each PO DAILY #30 tab 04/23/24 [Rx] Sertraline [Zoloft] 100 mg PO DAILY 04/23/24 [History] Follow up Appointment(s)/Referral(s): Iza Pimentel MD [Primary Care Provider] - 3 Days Discharge Disposition: HOME SELF-CARE
[2024-04-23 15:16] VITALS: BP 123/81; PULSE 18
--- NOTE | 2024-04-23 16:05 | CA ---
Transthoracic Echo Report Name: Elsi Vivar Age: 48 Gender: F : 1975 Exam Date: 04/23/2024 12:39 Exam Location: [place] [facility] Ht (in): 69 Wt (lb): 240 Ordering Physician: Levar Garcia MD Attending/Referring Phys: Outsole Beveler Cecilia Shelton RDCS Procedure CPT: Indications: dyspnea Cardiac Hx: Technical Quality: Fair Contrast 1: Total Dose (mL): Contrast 2: Total Dose (mL): MEASUREMENTS (Male / Female) Normal Values 2D ECHO LV Diastolic Diameter PLAX 5.3 cm 4.2 - 5.9 / 3.9 - 5.3 cm LV Systolic Diameter PLAX 3.5 cm IVS Diastolic Thickness 1.3 cm 0.6 - 1.0 / 0.6 - 0.9 cm LVPW Diastolic Thickness 1.5 cm 0.6 - 1.0 / 0.6 - 0.9 cm LV Relative Wall Thickness 0.5 RV Internal Dim ED PLAX 3.7 cm LVOT Diameter 1.8 cm LA Volume 86.0 cm??? 18 - 58 / 22 - 52 cm??? LA Volume Index 36.7 cm???/m??? 16 - 28 cm???/m??? DOPPLER AV Peak Velocity 194.5 cm/s AV Peak Gradient 15.1 mmHg AV Mean Velocity 126.3 cm/s AV Mean Gradient 7.5 mmHg AV Velocity Time Integral 39.9 cm LVOT Peak Velocity 149.3 cm/s LVOT Peak Gradient 8.9 mmHg LVOT Velocity Time Integral 31.0 cm LVOT Stroke Volume 77.6 cm??? LVOT Stroke Volume Index 34.8 ml/m??? LVOT Cardiac Index 2187.0 cm???/min???m??? AV Area Cont Eq vti 1.9 cm??? AV Area Cont Eq pk 1.9 cm??? MV Area PHT 3.3 cm??? Mitral E Point Velocity 76.0 cm/s Mitral A Point Velocity 96.3 cm/s Mitral E to A Ratio 0.8 MV Deceleration Time 232.2 ms MV E' Velocity 6.7 cm/s Mitral E to MV E' Ratio 11.4 TR Peak Velocity 258.5 cm/s TR Peak Gradient 26.7 mmHg FINDINGS Left Ventricle Mild concentric left ventricular hypertrophy. Left ventricular cavity size normal. Normal left ventricular systolic function with no obvious regional wall motion abnormalities. Left ventricular ejection fraction is estimated at 55-60 %. Normal left ventricular diastolic filling pattern. Right Ventricle Normal right ventricular size and function. Right ventricular systolic pressure within normal limits. Right Atrium Normal right atrial size. Left Atrium Moderately increased left atrial volume. Mildly increased left atrial area. Mitral Valve Structurally normal mitral valve. Mild mitral regurgitation. Aortic Valve Trileaflet aortic valve. No aortic valve stenosis or regurgitation. Tricuspid Valve Structurally normal tricuspid valve. Mild tricuspid regurgitation. Pulmonic Valve Structurally normal pulmonic valve. Pericardium No pericardial effusion. Aorta Normal size aortic root and proximal ascending aorta. CONCLUSIONS Mild increased left ventricular wall thickness Left ventricular ejection fraction 55-60% Moderately dilated left atrium Mild mitral regurgitation Mild tricuspid regurgitation RVSP 26 Previewed by: Dr. Richy Herrera DO (Electronically Signed) Final Date: 23 April 2024 16:04
[2024-04-23] MEDS ORDERED: ATORVASTATIN 40 MG TAB PO SCH (21:00)
[2024-04-23] MEDS ORDERED: [UNRECOGNIZED DRUG - OTHER] PO SCH (21:00)
[2024-04-23] MEDS ORDERED: HYDROCHLOROTHIAZIDE PO SCH (21:00)
[2024-04-23] MEDS ORDERED: OLMESARTAN PO SCH (21:00)
[2024-04-24] MEDS ORDERED: hydroCHLOROthiazide 25 MG TAB PO SCH (09:00)
== END 2024-04-23 15:18 | disposition home or self-care (01) ==
LOC: EC 04:04 → 6NMEDSUR 06:52
PROVIDERS: ADMIT Hospitalist; ATTEND Hospitalist
DX: R06.02 Shortness of breath (principal); D63.8 Anemia in other chronic diseases classified elsewhere; I27.20 Pulmonary hypertension, unspecified; I95.1 Orthostatic hypotension; I71.20 Thoracic aortic aneurysm, without rupture, unspecified; E78.5 Hyperlipidemia, unspecified; I10 Essential (primary) hypertension; E11.9 Type 2 diabetes mellitus without complications; R33.9 Retention of urine, unspecified; I25.2 Old myocardial infarction; Z79.82 Long term (current) use of aspirin; Z79.899 Other long term (current) drug therapy; Z87.891 Personal history of nicotine dependence; Z95.5 Presence of coronary angioplasty implant and graft; Z96.642 Presence of left artificial hip joint; Z87.01 Personal history of pneumonia (recurrent); Z11.52 Encounter for screening for COVID-19; Z11.59 Encounter for screening for other viral diseases
CPT/HCPCS: 99285; 36415; 93005; 93306; 83880; 80053; 85652; 83540; 83550; 83735; 84484; 85025; 85610; 85730; 86140; 81001; 87636; 71046; G0378